=== PATIENT | female | born 1960 | race African-American/Black ===

== ENCOUNTER 2018-10-24 20:42 | Observation (INO) ==
[2018-10-24 21:26] LABS: Basophils % 0.5 % (0.0-0.8); Eosinophils # 0.2 10*3/uL (0.0-0.87); Eosinophils % 2.6 % (0.00-10.9); Hematocrit 30.9 VOL% (35.7-47.0); Hemoglobin 9.9 GM/DL (12.0-16.0); Immature Granulocytes % 0.3 %; Immature Granulocytes Absolute 0.02 #; Lymphocytes # 2.7 10*3/uL (1.4-4.0); Lymphocytes % 41.9 % (21.3-54.2); Mean Corpuscular Hemoglobin 30 PG (27-34); Mean Corpuscular Volume 92.2 FL (87-102); Mean Platelet Volume 9.7 FL (9.6-12.0); Monocytes # 0.6 10*3/uL (0.11-0.8); Monocytes % 8.9 % (1.7-12.7); Neutrophils # 2.9 10*3/uL (1.4-7.4); Neutrophils % 45.8 % (38.7-73.9); Platelet Count 249 T/CUMM (130-400); Red Blood Count 3.35 MC/CUMM (3.8-5.5); White Blood Count 6.4 T/CUMM (4-12)
[2018-10-24] MEDS ORDERED: NITROGLYCERIN SL 0.4 MG TABLET SL ONE (21:35)
[2018-10-24 21:36] LABS: INR 0.9; PT Patient Result 10.1 SECS; Partial Thromboplastin Time 26.5 SECS (0-40)
[2018-10-24] MEDS ORDERED: ASPIRIN 325 MG TABLET PO STA (21:47)
[2018-10-24] MEDS ORDERED: ONDANSETRON 4 MG/2 ML VIAL IV STA (21:47)
[2018-10-24] MEDS ORDERED: FUROSEMIDE 100 MG/10 ML VIAL IV STA (21:47)
[2018-10-24] MEDS ORDERED: MORPHINE 4 MG/1 ML VIAL IV STA (21:47)
[2018-10-24 21:49] LABS: Alanine Aminotransferase 25 U/L (13-56); Albumin 3.3 G/DL (3.4-5.0); Alkaline Phosphatase 121 U/L (45-117); Aspartate Amino Transferase 15 U/L (0-37); Bilirubin,Total < 0.39 MG/DL (0.2-1.0); Blood Urea Nitrogen 24 MG/DL (7-18); Calcium 9.3 MG/DL (8.5-10.1); Glucose 95 MG/DL (74-106); Osmolality,Calculated 280.5 MOS/KG (273-304); Potassium 3.9 MMOL/L (3.5-5.1); Sodium 139 MMOL/L (136-145); Total Protein 7.7 G/DL (6.4-8.3)
[2018-10-24 23:52] LABS: Apearance,Urine Slightly Hazy (Clear); Bacteria,Urine Occasional /HPF (Few); Bilirubin,Urine Negative (Negative); Blood, Urine Negative (Negative); Glucose,Urine (UA) Negative (Negative); Hyaline Casts,Urine 3 /LPF (0-3); Ketones,Urine Negative (Negative); Mucus,Urine Occasional /LPF (Occasional); Nitrite,Urine Positive (Negative); Protein,Urine Negative; RBC,Urine 3 /HPF (0-4); Squamous Epithelial Cell,Urine Occasional /HPF (0-10); Urine Color Yellow (Yellow); Urine Specific Gravity 1.014 (1.001-1.035); Urine Urobilinogen < 2.0 EU/DL (0.2-1.0); WBC,Urine 42 /HPF (0-6)
[2018-10-25] MEDS ORDERED: cefTRIAXone 1,000 MG in SODIUM CHLORIDE 0.9% 100 ML IV STA (01:25)
[2018-10-25] MEDS ORDERED: guaiFENesin/DM ER 600-30 MG TABLET PO PRN (03:16)
[2018-10-25] MEDS ORDERED: ACETAMINOPHEN 325 MG TABLET PO PRN (03:16)
[2018-10-25] MEDS ORDERED: ONDANSETRON 4 MG/2 ML VIAL IV PRN (03:16)
[2018-10-25] MEDS ORDERED: MORPHINE 4 MG/1 ML VIAL IV PRN (03:16)
[2018-10-25] MEDS ORDERED: traZODone 50 MG TABLET PO PRN (03:16)
[2018-10-25] MEDS ORDERED: NICOTINE 21 MG/24 HR PATCH TRANSDERM PRN (03:16)
[2018-10-25] MEDS ORDERED: BISACODYL 5 MG TABLET PO PRN (03:16)
[2018-10-25] MEDS ORDERED: diphenhydrAMINE CAP 25 MG CAPSULE PO PRN (03:16)
[2018-10-25 04:52] LABS: Basophils % 0.4 % (0.0-0.8); Eosinophils # 0.2 10*3/uL (0.0-0.87); Eosinophils % 3.1 % (0.00-10.9); Hematocrit 31.6 VOL% (35.7-47.0); Hemoglobin 10.1 GM/DL (12.0-16.0); Immature Granulocytes % 0.3 %; Immature Granulocytes Absolute 0.02 #; Lymphocytes # 2.6 10*3/uL (1.4-4.0); Lymphocytes % 38.4 % (21.3-54.2); Mean Corpuscular Hemoglobin 30 PG (27-34); Mean Corpuscular Volume 92.7 FL (87-102); Mean Platelet Volume 10.2 FL (9.6-12.0); Monocytes # 0.6 10*3/uL (0.11-0.8); Monocytes % 8.9 % (1.7-12.7); Neutrophils # 3.3 10*3/uL (1.4-7.4); Neutrophils % 48.9 % (38.7-73.9); Platelet Count 251 T/CUMM (130-400); Red Blood Count 3.41 MC/CUMM (3.8-5.5); White Blood Count 6.8 T/CUMM (4-12)
[2018-10-25 05:15] LABS: Albumin 3.2 G/DL (3.4-5.0); Bilirubin,Total 0.6 MG/DL (0.2-1.0); Osmolality,Calculated 281.4 MOS/KG (273-304); Potassium 3.8 MMOL/L (3.5-5.1); Total Protein 7.7 G/DL (6.4-8.3)
[2018-10-25] MEDS: FUROSEMIDE 40 MG/4 ML VIAL IV SCH ×2 (08:44→17:13)
[2018-10-25] MEDS: ENOXAPARIN 40 MG/0.4 ML SYRINGE SUBCUT SCH (08:44)
[2018-10-25] MEDS: PANTOPRAZOLE 40 MG TABLET PO SCH (08:44)
[2018-10-25] MEDS ORDERED: DEXTROSE 50% 25 GM/50 ML SYRINGE IV PRN (10:46)
[2018-10-25] MEDS ORDERED: GLUCAGON 1 MG VIAL IM PRN (10:46)
[2018-10-25] MEDS ORDERED: CYCLOBENZAPRINE 10 MG TABLET PO PRN (10:51)
[2018-10-25] MEDS ORDERED: FLUTICASONE/SALMETEROL 250-50 DISKUS 14 DOSE INH PRN (10:51)
[2018-10-25] MEDS ORDERED: NON-FORMULARY MEDICATION (Albuterol Inhaler 2 PUFF) INH PRN (10:51)
[2018-10-25] MEDS ORDERED: NITROGLYCERIN SL 0.4 MG TABLET SL PRN (10:51)
[2018-10-25] MEDS ORDERED: ALBUTEROL 2.5 MG/3 ML NEB RESP TX PRN (10:51)
[2018-10-25] MEDS: INSULIN LISPRO 100 UNIT/ML SUBCUT SCH ×3 (12:27→23:03)
[2018-10-25] MEDS ORDERED: metOLazone 5 MG TABLET PO SCH (13:00)
[2018-10-25] MEDS: GABAPENTIN 300 MG CAPSULE PO SCH ×2 (14:39→23:01)
[2018-10-25 15:19] LABS: Free T4 (Free Thyroxine) 1.08 NG/DL (0.76-1.46)
[2018-10-25] MEDS: metFORMIN 500 MG TABLET PO SCH (17:13)
[2018-10-25] MEDS ORDERED: INSULIN GLARGINE 100 UNIT/ML SUBCUT SCH (21:00)
[2018-10-25] MEDS: ATORVASTATIN 80 MG TABLET PO SCH (23:01)
[2018-10-25] MEDS: DOCUSATE SODIUM 100 MG CAPSULE PO SCH (23:01)
[2018-10-25] MEDS: MAGNESIUM OXIDE 400 MG TABLET PO SCH (23:01)
[2018-10-25] MEDS: INSULIN GLARGINE 100 UNIT/ML SUBCUT SCH (23:02)
[2018-10-25] MEDS: CARVEDILOL 25 MG TABLET PO SCH (23:07)
[2018-10-26] MEDS: cefTRIAXone 1,000 MG in SYRINGE 1 EACH IV SCH (04:21)
[2018-10-26 04:47] LABS: Basophils % 0.3 % (0.0-0.8); Eosinophils # 0.2 10*3/uL (0.0-0.87); Eosinophils % 2.5 % (0.00-10.9); Hematocrit 30.7 VOL% (35.7-47.0); Hemoglobin 9.7 GM/DL (12.0-16.0); Immature Granulocytes % 0.3 %; Immature Granulocytes Absolute 0.02 #; Lymphocytes # 2.3 10*3/uL (1.4-4.0); Lymphocytes % 33.2 % (21.3-54.2); Mean Corpuscular HGB Conc 31.6 GM/DL (32-36); Mean Corpuscular Hemoglobin 29 PG (27-34); Mean Corpuscular Volume 92.7 FL (87-102); Mean Platelet Volume 10.5 FL (9.6-12.0); Monocytes # 0.6 10*3/uL (0.11-0.8); Monocytes % 8.6 % (1.7-12.7); Neutrophils # 3.8 10*3/uL (1.4-7.4); Neutrophils % 55.1 % (38.7-73.9); Platelet Count 247 T/CUMM (130-400); Red Blood Count 3.31 MC/CUMM (3.8-5.5); Red Cell Distribution Width 13.8 % (9.3-17.3); White Blood Count 6.8 T/CUMM (4-12)
[2018-10-26 05:07] LABS: Calcium 8.6 MG/DL (8.5-10.1); Osmolality,Calculated 280.8 MOS/KG (273-304); Potassium 3.6 MMOL/L (3.5-5.1)
[2018-10-26] MEDS ORDERED: LEVOTHYROXINE 150 MCG TABLET PO SCH (06:30)
[2018-10-26] MEDS ORDERED: CYANOCOBALAMIN 100 MCG TABLET PO SCH (09:00)
[2018-10-26] MEDS ORDERED: FUROSEMIDE 40 MG TABLET PO SCH (09:00)
[2018-10-26] MEDS ORDERED: NON-FORMULARY MEDICATION (Omeprazole [Omeprazole] 20 MG) PO SCH (09:00)
[2018-10-26] MEDS: metFORMIN 500 MG TABLET PO SCH ×2 (09:12→16:10)
[2018-10-26] MEDS: FUROSEMIDE 40 MG/4 ML VIAL IV SCH ×2 (09:12→16:06)
[2018-10-26] MEDS: MAGNESIUM OXIDE 400 MG TABLET PO SCH ×2 (09:12→22:10)
[2018-10-26] MEDS: POTASSIUM CHLORIDE 20 MEQ TABLET PO SCH (09:13)
[2018-10-26] MEDS: GABAPENTIN 300 MG CAPSULE PO SCH ×3 (09:13→22:10)
[2018-10-26] MEDS: amLODIPine 2.5 MG TABLET PO SCH (09:14)
[2018-10-26] MEDS: ENOXAPARIN 40 MG/0.4 ML SYRINGE SUBCUT SCH (09:15)
[2018-10-26] MEDS: ISOSORBIDE MONONITRATE 30 MG TABLET PO SCH (09:15)
[2018-10-26] MEDS: CARVEDILOL 25 MG TABLET PO SCH ×2 (09:15→22:10)
[2018-10-26] MEDS: INSULIN LISPRO 100 UNIT/ML SUBCUT SCH ×4 (09:19→22:12)
[2018-10-26] MEDS: ASPIRIN EC 81 MG TABLET PO SCH (09:19)
[2018-10-26] MEDS: CHOLECALCIFEROL 1,000 UNIT TABLET PO SCH (09:20)
[2018-10-26] MEDS: VALSARTAN/HCTZ 160-12.5 MG TABLET PO SCH (09:20)
[2018-10-26] MEDS: PANTOPRAZOLE 40 MG TABLET PO SCH (09:20)
[2018-10-26] MEDS: diphenhydrAMINE CAP 25 MG CAPSULE PO SCH (09:20)
[2018-10-26] MEDS: DOCUSATE SODIUM 100 MG CAPSULE PO SCH (22:08)
[2018-10-26] MEDS: ATORVASTATIN 80 MG TABLET PO SCH (22:10)
[2018-10-26] MEDS: INSULIN GLARGINE 100 UNIT/ML SUBCUT SCH (22:12)
[2018-10-27] MEDS: cefTRIAXone 1,000 MG in SYRINGE 1 EACH IV SCH (03:25)
[2018-10-27] MEDS ORDERED: LEVOTHYROXINE 175 MCG TABLET PO SCH (06:30)
[2018-10-27 08:33] VITALS: BP 128/75
[2018-10-27] MEDS: CHOLECALCIFEROL 1,000 UNIT TABLET PO SCH (09:20)
[2018-10-27] MEDS: PANTOPRAZOLE 40 MG TABLET PO SCH (09:20)
[2018-10-27] MEDS: MAGNESIUM OXIDE 400 MG TABLET PO SCH (09:20)
[2018-10-27] MEDS: GABAPENTIN 300 MG CAPSULE PO SCH (09:20)
[2018-10-27] MEDS: amLODIPine 2.5 MG TABLET PO SCH (09:20)
[2018-10-27] MEDS: CARVEDILOL 25 MG TABLET PO SCH (09:21)
[2018-10-27] MEDS: ISOSORBIDE MONONITRATE 30 MG TABLET PO SCH (09:21)
[2018-10-27] MEDS: POTASSIUM CHLORIDE 20 MEQ TABLET PO SCH (09:21)
[2018-10-27] MEDS: VALSARTAN/HCTZ 160-12.5 MG TABLET PO SCH (09:21)
[2018-10-27] MEDS: ASPIRIN EC 81 MG TABLET PO SCH (09:21)
[2018-10-27] MEDS: diphenhydrAMINE CAP 25 MG CAPSULE PO SCH (09:21)
[2018-10-27] MEDS: ENOXAPARIN 40 MG/0.4 ML SYRINGE SUBCUT SCH (09:22)
[2018-10-27] MEDS: FUROSEMIDE 40 MG/4 ML VIAL IV SCH (09:22)
[2018-10-27] MEDS: metFORMIN 500 MG TABLET PO SCH (09:22)
[2018-10-27] MEDS: INSULIN LISPRO 100 UNIT/ML SUBCUT SCH ×2 (09:23→13:43)
== END 2018-10-27 13:36 | disposition home or self-care (01) ==
LOC: N.ED 20:42 → N.EDINP 20:42 → SUATTDRO 10-25 03:16 → N.TELES 10-25 04:12
PROVIDERS: ADMIT Internal Medicine; ATTEND Internal Medicine

== ENCOUNTER 2019-01-27 12:28 | Inpatient (IN) ==
[~2019-01-27 12:28] MED LIST: ETOMIDATE 20 MG/10 ML VIAL IV ONE; LIDOCAINE 2% 5 ML VIAL ONE; PROPOFOL 200 MG/20 ML VIAL IV ONE
[2019-01-27] MEDS ORDERED: ASPIRIN 325 MG TABLET PO STA (12:54)
[2019-01-27 13:28] LABS: Basophils # 0.1 10*3/uL (0.0-0.2); Basophils % 0.4 % (0.0-0.8); Eosinophils # 0.1 10*3/uL (0.0-0.87); Eosinophils % 0.7 % (0.00-10.9); Hematocrit 40.2 VOL% (35.7-47.0); Hemoglobin 12.8 GM/DL (12.0-16.0); Immature Granulocytes % 0.8 %; Immature Granulocytes Absolute 0.11 #; Lymphocytes % 7.3 % (21.3-54.2); Mean Corpuscular HGB Conc 31.8 GM/DL (32-36); Mean Corpuscular Volume 89.3 FL (87-102); Mean Platelet Volume 10.2 FL (9.6-12.0); Monocytes % 6.7 % (1.7-12.7); Neutrophils % 84.1 % (38.7-73.9); Platelet Count 313 T/CUMM (130-400); Red Cell Distribution Width 14.7 % (9.3-17.3); White Blood Count 13.6 T/CUMM (4-12)
[2019-01-27 13:38] LABS: Alanine Aminotransferase 22 U/L (13-56); Albumin 4.3 G/DL (3.4-5.0); Alkaline Phosphatase 119 U/L (45-117); Aspartate Amino Transferase 24 U/L (0-37); Blood Urea Nitrogen 18 MG/DL (7-18); Calcium 9.7 MG/DL (8.5-10.1); Glucose 152 MG/DL (74-106); Osmolality,Calculated 277.8 MOS/KG (273-304); Total Protein 8.7 G/DL (6.4-8.3)
[2019-01-27 13:49] LABS: Apearance,Urine Slightly Hazy (Clear); Bacteria,Urine Moderate /HPF (Few); Bilirubin,Urine Negative (Negative); Blood, Urine Negative (Negative); Glucose,Urine (UA) Negative (Negative); Ketones,Urine Negative (Negative); Mucus,Urine Occasional /LPF (Occasional); Nitrite,Urine Negative (Negative); Protein,Urine 30 MG/DL; RBC,Urine 2 /HPF (0-4); Squamous Epithelial Cell,Urine Occasional /HPF (0-10); Urine Color Yellow (Yellow); Urine Specific Gravity 1.013 (1.001-1.035); Urine Urobilinogen < 2.0 EU/DL (0.2-1.0); WBC,Urine 6 /HPF (0-6)
[2019-01-27] MEDS ORDERED: MORPHINE 4 MG/1 ML VIAL IV PRN (14:39)
[2019-01-27] MEDS ORDERED: DOCUSATE SODIUM 100 MG CAPSULE PO PRN (14:49)
[2019-01-27] MEDS ORDERED: PROMETHAZINE 25 MG TABLET PO PRN (14:49)
[2019-01-27] MEDS ORDERED: ONDANSETRON 4 MG/2 ML VIAL IV PRN (14:49)
[2019-01-27] MEDS ORDERED: LORazepam 1 MG TABLET PO ONE (14:49)
[2019-01-27] MEDS ORDERED: NICOTINE 21 MG/24 HR PATCH TRANSDERM PRN (14:49)
[2019-01-27] MEDS ORDERED: NITROGLYCERIN SL 0.4 MG TABLET SL PRN (14:53)
[2019-01-27] MEDS ORDERED: GLUCAGON 1 MG VIAL IM PRN (14:56)
[2019-01-27] MEDS ORDERED: DEXTROSE 50% 25 GM/50 ML VIAL IV PRN (14:56)
[2019-01-27] MEDS ORDERED: SODIUM CHLORIDE 0.9% 1,000 ML IV SCH (15:00)
[2019-01-27 15:39] LABS: Risk Ratio 2.92; Thyroid Stimulating Hormone 7.61 uIU/ml (0.358-3.74); VLDL CHOLESTEROL 25.4 MG/DL
[2019-01-27] MEDS: CLOPIDOGREL 75 MG TABLET PO SCH (16:05)
[2019-01-27] MEDS: PANTOPRAZOLE 40 MG TABLET PO SCH ×2 (16:05→20:55)
[2019-01-27] MEDS: INSULIN LISPRO 100 UNIT/ML SUBCUT SCH ×2 (17:46→20:55)
[2019-01-27] MEDS ORDERED: LEVOFLOXACIN INJ 750 MG in PREMIX 1 EACH IV SCH (18:00)
[2019-01-27] MEDS: cefTRIAXone 2,000 MG in SYRINGE 1 EACH IV SCH (18:30)
[2019-01-27] MEDS: VANCOMYCIN INJ 2,000 MG in SODIUM CHLORIDE 0.9% 500 ML IV SCH (20:39)
[2019-01-27] MEDS ORDERED: ACETAMINOPHEN 325 MG TABLET PO PRN (20:47)
[2019-01-27] MEDS: CARVEDILOL 12.5 MG TABLET PO SCH (20:55)
[2019-01-28] MEDS: SODIUM CHLORIDE 0.9% IV SCH ×3 (00:03→16:11)
[2019-01-28] MEDS: ACYCLOVIR IV SCH ×3 (00:03→16:11)
[2019-01-28] MEDS: cefTRIAXone 2,000 MG in SYRINGE 1 EACH IV SCH ×2 (05:55→17:40)
[2019-01-28 06:16] LABS: Basophils % 0.3 % (0.0-0.8); Eosinophils % 0.1 % (0.00-10.9); Hematocrit 33.9 VOL% (35.7-47.0); Immature Granulocytes % 0.5 %; Immature Granulocytes Absolute 0.08 #; Lymphocytes # 1.5 10*3/uL (1.4-4.0); Lymphocytes % 10.1 % (21.3-54.2); Mean Corpuscular HGB Conc 32.4 GM/DL (32-36); Mean Corpuscular Volume 88.5 FL (87-102); Mean Platelet Volume 9.6 FL (9.6-12.0); Monocytes % 7.6 % (1.7-12.7); Neutrophils % 81.4 % (38.7-73.9); Platelet Count 227 T/CUMM (130-400); Red Blood Count 3.83 MC/CUMM (3.8-5.5); Red Cell Distribution Width 14.8 % (9.3-17.3); White Blood Count 14.8 T/CUMM (4-12)
[2019-01-28] MEDS ORDERED: LEVOTHYROXINE 175 MCG TABLET PO SCH (06:30)
[2019-01-28 06:54] LABS: Bilirubin,Total 0.4 MG/DL (0.2-1.0); Calcium 8.5 MG/DL (8.5-10.1); Osmolality,Calculated 276.8 MOS/KG (273-304); Total Protein 7.3 G/DL (6.4-8.3)
[2019-01-28] MEDS: CHOLECALCIFEROL 1,000 UNIT TABLET PO SCH (08:18)
[2019-01-28] MEDS: ROSUVASTATIN 20 MG TABLET PO SCH (08:18)
[2019-01-28] MEDS: FUROSEMIDE 80 MG TABLET PO SCH (08:19)
[2019-01-28] MEDS: MAGNESIUM CHLORIDE 64 MG TABLET PO SCH (08:19)
[2019-01-28] MEDS: CLOPIDOGREL 75 MG TABLET PO SCH (08:19)
[2019-01-28] MEDS: ASPIRIN EC 81 MG TABLET PO SCH (08:19)
[2019-01-28] MEDS: POTASSIUM CHLORIDE 20 MEQ TABLET PO SCH (08:20)
[2019-01-28] MEDS: PANTOPRAZOLE 40 MG TABLET PO SCH ×2 (08:20→23:02)
[2019-01-28] MEDS: CARVEDILOL 12.5 MG TABLET PO SCH ×2 (08:21→23:02)
[2019-01-28] MEDS: VALSARTAN/HCTZ 160-12.5 MG TABLET PO SCH (08:22)
[2019-01-28] MEDS: ISOSORBIDE MONONITRATE 30 MG TABLET PO SCH (08:22)
[2019-01-28 09:39] LABS: INR 1.1; PT Patient Result 11.8 SECS
[2019-01-28] MEDS: VANCOMYCIN INJ 2,000 MG in SODIUM CHLORIDE 0.9% 500 ML IV SCH ×2 (09:46→23:03)
[2019-01-28] MEDS: INSULIN LISPRO 100 UNIT/ML SUBCUT SCH ×4 (09:46→23:04)
[2019-01-28] MEDS ORDERED: DEXTROSE 50% 25 GM/50 ML VIAL IV PRN (12:39)
[2019-01-28] MEDS ORDERED: GLUCAGON 1 MG VIAL IM PRN (12:39)
[2019-01-29 02:19] LABS: Basophils % 0.3 % (0.0-0.8); Eosinophils # 0.1 10*3/uL (0.0-0.87); Eosinophils % 0.7 % (0.00-10.9); Hematocrit 30.3 VOL% (35.7-47.0); Hemoglobin 9.7 GM/DL (12.0-16.0); Immature Granulocytes % 0.6 %; Immature Granulocytes Absolute 0.06 #; Lymphocytes # 2.2 10*3/uL (1.4-4.0); Lymphocytes % 21.5 % (21.3-54.2); Mean Corpuscular Volume 89.4 FL (87-102); Mean Platelet Volume 9.9 FL (9.6-12.0); Monocytes % 10.4 % (1.7-12.7); Neutrophils % 66.5 % (38.7-73.9); Platelet Count 188 T/CUMM (130-400); Red Blood Count 3.39 MC/CUMM (3.8-5.5); Red Cell Distribution Width 14.9 % (9.3-17.3); White Blood Count 10.2 T/CUMM (4-12)
[2019-01-29] MEDS: ACYCLOVIR IV SCH ×2 (02:49→10:45)
[2019-01-29] MEDS: SODIUM CHLORIDE 0.9% IV SCH ×2 (02:49→10:45)
[2019-01-29 02:54] LABS: Alanine Aminotransferase 36 U/L (13-56); Alkaline Phosphatase 103 U/L (45-117); Aspartate Amino Transferase 45 U/L (0-37); Bilirubin,Total < 0.39 MG/DL (0.2-1.0); Blood Urea Nitrogen 19 MG/DL (7-18); Glucose 155 MG/DL (74-106); Osmolality,Calculated 277.8 MOS/KG (273-304); Total Protein 7.2 G/DL (6.4-8.3)
[2019-01-29] MEDS: LEVOTHYROXINE 200 MCG TABLET PO SCH (06:50)
[2019-01-29] MEDS: cefTRIAXone 2,000 MG in SYRINGE 1 EACH IV SCH (06:50)
[2019-01-29] MEDS: INSULIN LISPRO 100 UNIT/ML SUBCUT SCH ×4 (09:50→21:11)
[2019-01-29] MEDS: VANCOMYCIN INJ 2,000 MG in SODIUM CHLORIDE 0.9% 500 ML IV SCH (10:44)
[2019-01-29] MEDS: CHOLECALCIFEROL 1,000 UNIT TABLET PO SCH (10:49)
[2019-01-29] MEDS: VALSARTAN/HCTZ 160-12.5 MG TABLET PO SCH (10:49)
[2019-01-29] MEDS: POTASSIUM CHLORIDE 20 MEQ TABLET PO SCH (10:50)
[2019-01-29] MEDS: CLOPIDOGREL 75 MG TABLET PO SCH (10:50)
[2019-01-29] MEDS: ASPIRIN EC 81 MG TABLET PO SCH (10:50)
[2019-01-29] MEDS: ROSUVASTATIN 20 MG TABLET PO SCH (10:50)
[2019-01-29] MEDS: FUROSEMIDE 80 MG TABLET PO SCH (10:51)
[2019-01-29] MEDS: CARVEDILOL 12.5 MG TABLET PO SCH ×2 (10:51→21:09)
[2019-01-29] MEDS: ISOSORBIDE MONONITRATE 30 MG TABLET PO SCH (10:51)
[2019-01-29] MEDS: MAGNESIUM CHLORIDE 64 MG TABLET PO SCH (10:51)
[2019-01-29] MEDS: PANTOPRAZOLE 40 MG TABLET PO SCH ×2 (10:51→21:09)
[2019-01-30 01:55] LABS: Basophils % 0.3 % (0.0-0.8); Eosinophils # 0.2 10*3/uL (0.0-0.87); Eosinophils % 3.6 % (0.00-10.9); Hematocrit 29.9 VOL% (35.7-47.0); Hemoglobin 9.8 GM/DL (12.0-16.0); Immature Granulocytes % 0.1 %; Immature Granulocytes Absolute 0.01 #; Mean Corpuscular HGB Conc 32.8 GM/DL (32-36); Mean Corpuscular Volume 88.5 FL (87-102); Mean Platelet Volume 10.5 FL (9.6-12.0); Monocytes % 11.8 % (1.7-12.7); Neutrophils % 55.2 % (38.7-73.9); Platelet Count 199 T/CUMM (130-400); Red Blood Count 3.38 MC/CUMM (3.8-5.5); Red Cell Distribution Width 14.9 % (9.3-17.3); White Blood Count 6.7 T/CUMM (4-12)
[2019-01-30 02:18] LABS: Alanine Aminotransferase 48 U/L (13-56); Albumin 2.9 G/DL (3.4-5.0); Alkaline Phosphatase 101 U/L (45-117); Aspartate Amino Transferase 53 U/L (0-37); Bilirubin,Total < 0.39 MG/DL (0.2-1.0); Blood Urea Nitrogen 20 MG/DL (7-18); Calcium 8.1 MG/DL (8.5-10.1); Glucose 184 MG/DL (74-106); Osmolality,Calculated 286.4 MOS/KG (273-304)
[2019-01-30] MEDS: LEVOTHYROXINE 200 MCG TABLET PO SCH (06:06)
[2019-01-30] MEDS ORDERED: cefTRIAXone 2,000 MG in SYRINGE 1 EACH IV SCH (09:00)
[2019-01-30] MEDS: INSULIN LISPRO 100 UNIT/ML SUBCUT SCH ×2 (09:47→13:54)
[2019-01-30] MEDS: CHOLECALCIFEROL 1,000 UNIT TABLET PO SCH (09:48)
[2019-01-30] MEDS: VALSARTAN/HCTZ 160-12.5 MG TABLET PO SCH (09:48)
[2019-01-30] MEDS: FUROSEMIDE 80 MG TABLET PO SCH (09:48)
[2019-01-30] MEDS: MAGNESIUM CHLORIDE 64 MG TABLET PO SCH (09:49)
[2019-01-30] MEDS: ASPIRIN EC 81 MG TABLET PO SCH (09:49)
[2019-01-30] MEDS: CLOPIDOGREL 75 MG TABLET PO SCH (09:49)
[2019-01-30] MEDS: CARVEDILOL 12.5 MG TABLET PO SCH (09:49)
[2019-01-30] MEDS: PANTOPRAZOLE 40 MG TABLET PO SCH (09:49)
[2019-01-30] MEDS: POTASSIUM CHLORIDE 20 MEQ TABLET PO SCH (09:49)
[2019-01-30] MEDS: ISOSORBIDE MONONITRATE 30 MG TABLET PO SCH (09:49)
[2019-01-30] MEDS: ROSUVASTATIN 20 MG TABLET PO SCH (09:50)
[2019-01-30 12:59] VITALS: BP 118/63
== END 2019-01-30 15:54 | disposition home or self-care (01) | DRG 690 ==
LOC: N.ED 12:28 → N.EDINP 14:49 → N.TELEN 16:41
PROVIDERS: ADMIT Internal Medicine; ATTEND Internal Medicine

== ENCOUNTER 2019-07-20 13:58 | Observation (INO) ==
[2019-07-20 14:45] LABS: Basophils % 0.8 % (0.0-0.8); Eosinophils # 0.1 10*3/uL (0.0-0.87); Eosinophils % 2.5 % (0.00-10.9); Hematocrit 33.8 VOL% (35.7-47.0); Hemoglobin 10.9 GM/DL (12.0-16.0); Immature Granulocytes % 0.4 %; Immature Granulocytes Absolute 0.02 #; Lymphocytes # 2.1 10*3/uL (1.4-4.0); Lymphocytes % 39.6 % (21.3-54.2); Mean Corpuscular HGB Conc 32.2 GM/DL (32-36); Mean Corpuscular Volume 89.4 FL (87-102); Mean Platelet Volume 10.3 FL (9.6-12.0); Monocytes % 11.4 % (1.7-12.7); Neutrophils % 45.3 % (38.7-73.9); Platelet Count 249 T/CUMM (130-400); Red Blood Count 3.78 MC/CUMM (3.8-5.5); Red Cell Distribution Width 14.6 % (9.3-17.3); White Blood Count 5.3 T/CUMM (4-12)
[2019-07-20 14:54] LABS: INR 0.9; PT Patient Result 9.9 SECS (9.6-12.2)
[2019-07-20 15:04] LABS: Alanine Aminotransferase 25 U/L (13-56); Albumin 3.3 G/DL (3.4-5.0); Alkaline Phosphatase 108 U/L (45-117); Aspartate Amino Transferase 28 U/L (0-37); Bilirubin,Total < 0.39 MG/DL (0.2-1.0); Blood Urea Nitrogen 13 MG/DL (7-18); Calcium 8.8 MG/DL (8.5-10.1); Estimated Glom Filtration Rate 88 ML/MIN; Glucose 242 MG/DL (74-106); Osmolality,Calculated 286.4 MOS/KG (273-304); Total Protein 7.9 G/DL (6.4-8.3)
[2019-07-20] MEDS ORDERED: FUROSEMIDE 40 MG/4 ML VIAL IV STA (16:12)
[2019-07-20] MEDS ORDERED: FUROSEMIDE 100 MG/10 ML VIAL ONE (16:17)
[2019-07-20 17:25] LABS: Apearance,Urine CLEAR (Clear); Bilirubin,Urine Negative (Negative); Blood, Urine Negative (Negative); Glucose,Urine (UA) 150 mg/dL (Negative); Ketones,Urine Negative (Negative); Mucus,Urine Occasional /LPF (Occasional); Nitrite,Urine Negative (Negative); Protein,Urine Negative; RBC,Urine 1 /HPF (0-4); Squamous Epithelial Cell,Urine Occasional /HPF (0-10); Urine Color Yellow (Yellow); Urine Specific Gravity 1.016 (1.001-1.035); Urine Urobilinogen < 2.0 EU/DL (0.2-1.0); WBC,Urine 1 /HPF (0-6)
[2019-07-20] MEDS ORDERED: MAGNESIUM SULF RIDER 4 GM in PREMIX 1 EACH IV PRN (18:23)
[2019-07-20] MEDS ORDERED: guaiFENesin/DM ER 600-30 MG TABLET PO PRN (18:23)
[2019-07-20] MEDS ORDERED: ONDANSETRON 4 MG/2 ML VIAL IV PRN (18:23)
[2019-07-20] MEDS ORDERED: POTASSIUM CHLORIDE 20 MEQ TABLET PO PRN (18:23)
[2019-07-20] MEDS ORDERED: MAGNESIUM SULF RIDER 2 GM in PREMIX 1 EACH IV PRN (18:23)
[2019-07-20] MEDS ORDERED: DEXTROSE 10% 250 ML BAG IV PRN (18:31)
[2019-07-20] MEDS ORDERED: GLUCAGON 1 MG VIAL IM PRN (18:31)
[2019-07-20] MEDS ORDERED: NITROGLYCERIN SL 0.4 MG TABLET SL PRN (18:33)
[2019-07-20 22:15] LABS: Troponin I 0.502 NG/ML (0.00-0.045)
[2019-07-20] MEDS: INSULIN LISPRO 100 UNIT/ML SUBCUT SCH (22:18)
[2019-07-20] MEDS: ENOXAPARIN 40 MG/0.4 ML SYRINGE SUBCUT SCH (22:19)
[2019-07-20] MEDS: carvediloL 12.5 MG TABLET PO SCH (22:19)
[2019-07-21 02:47] LABS: Basophils % 0.7 % (0.0-0.8); Eosinophils # 0.1 10*3/uL (0.0-0.87); Eosinophils % 2.1 % (0.00-10.9); Hematocrit 31.5 VOL% (35.7-47.0); Hemoglobin 10.3 GM/DL (12.0-16.0); Immature Granulocytes % 0.3 %; Immature Granulocytes Absolute 0.02 #; Lymphocytes % 34.8 % (21.3-54.2); Mean Corpuscular HGB Conc 32.7 GM/DL (32-36); Mean Corpuscular Volume 88.5 FL (87-102); Mean Platelet Volume 11.1 FL (9.6-12.0); Monocytes % 11.4 % (1.7-12.7); Neutrophils % 50.7 % (38.7-73.9); Platelet Count 239 T/CUMM (130-400); Red Blood Count 3.56 MC/CUMM (3.8-5.5); Red Cell Distribution Width 14.6 % (9.3-17.3); White Blood Count 5.8 T/CUMM (4-12)
[2019-07-21 03:27] LABS: Troponin I 0.428 NG/ML (0.00-0.045)
[2019-07-21 03:29] LABS: Alanine Aminotransferase 26 U/L (13-56); Albumin 3.1 G/DL (3.4-5.0); Alkaline Phosphatase 96 U/L (45-117); Aspartate Amino Transferase 28 U/L (0-37); Bilirubin,Total < 0.39 MG/DL (0.2-1.0); Blood Urea Nitrogen 13 MG/DL (7-18); Calcium 8.4 MG/DL (8.5-10.1); Estimated Glom Filtration Rate 79 ML/MIN; Glucose 183 MG/DL (74-106); HDL Cholesterol 32 MG/DL (40-60); Osmolality,Calculated 283.4 MOS/KG (273-304); Risk Ratio 4.44; Total Protein 6.8 G/DL (6.4-8.3); Triglycerides 299 MG/DL (2-150); VLDL CHOLESTEROL 59.8 MG/DL
[2019-07-21] MEDS: LEVOTHYROXINE 200 MCG TABLET PO SCH (06:04)
[2019-07-21] MEDS: CLOPIDOGREL 75 MG TABLET PO SCH (09:45)
[2019-07-21] MEDS: ISOSORBIDE MONONITRATE 30 MG TABLET PO SCH (09:45)
[2019-07-21] MEDS: DULoxetine 30 MG CAPSULE PO SCH (09:45)
[2019-07-21] MEDS: carvediloL 12.5 MG TABLET PO SCH ×2 (09:45→18:21)
[2019-07-21] MEDS: FUROSEMIDE 40 MG/4 ML VIAL IV SCH ×2 (09:45→15:32)
[2019-07-21] MEDS: ROSUVASTATIN 20 MG TABLET PO SCH (09:45)
[2019-07-21] MEDS: PANTOPRAZOLE 40 MG TABLET PO SCH (09:45)
[2019-07-21] MEDS: ASPIRIN EC 81 MG TABLET PO SCH (09:45)
[2019-07-21] MEDS: NICOTINE 21 MG/24 HR PATCH TRANSDERM PRN (09:46)
[2019-07-21] MEDS: INSULIN LISPRO 100 UNIT/ML SUBCUT SCH ×4 (09:53→22:32)
[2019-07-21] MEDS: ENOXAPARIN 40 MG/0.4 ML SYRINGE SUBCUT SCH (22:32)
[2019-07-22 05:35] LABS: Basophils % 0.6 % (0.0-0.8); Eosinophils # 0.1 10*3/uL (0.0-0.87); Eosinophils % 2.3 % (0.00-10.9); Hematocrit 30.4 VOL% (35.7-47.0); Immature Granulocytes % 0.4 %; Immature Granulocytes Absolute 0.02 #; Lymphocytes # 1.9 10*3/uL (1.4-4.0); Lymphocytes % 36.6 % (21.3-54.2); Mean Corpuscular HGB Conc 32.9 GM/DL (32-36); Mean Corpuscular Volume 87.6 FL (87-102); Mean Platelet Volume 10.6 FL (9.6-12.0); Neutrophils % 46.1 % (38.7-73.9); Platelet Count 227 T/CUMM (130-400); Red Blood Count 3.47 MC/CUMM (3.8-5.5); Red Cell Distribution Width 14.4 % (9.3-17.3); White Blood Count 5.1 T/CUMM (4-12)
[2019-07-22 05:57] LABS: Bilirubin,Total 0.4 MG/DL (0.2-1.0); Calcium 8.6 MG/DL (8.5-10.1); Osmolality,Calculated 282.8 MOS/KG (273-304); Total Protein 7.1 G/DL (6.4-8.3)
[2019-07-22] MEDS: LEVOTHYROXINE 200 MCG TABLET PO SCH (06:41)
[2019-07-22] MEDS: DULoxetine 30 MG CAPSULE PO SCH (09:35)
[2019-07-22] MEDS: ASPIRIN EC 81 MG TABLET PO SCH (09:35)
[2019-07-22] MEDS: PANTOPRAZOLE 40 MG TABLET PO SCH (09:35)
[2019-07-22] MEDS: ROSUVASTATIN 20 MG TABLET PO SCH (09:36)
[2019-07-22] MEDS: ISOSORBIDE MONONITRATE 30 MG TABLET PO SCH (09:36)
[2019-07-22] MEDS: carvediloL 12.5 MG TABLET PO SCH (09:36)
[2019-07-22] MEDS: CLOPIDOGREL 75 MG TABLET PO SCH (09:36)
[2019-07-22] MEDS: NICOTINE 21 MG/24 HR PATCH TRANSDERM PRN (09:37)
[2019-07-22] MEDS: FUROSEMIDE 40 MG/4 ML VIAL IV SCH (09:37)
[2019-07-22] MEDS: INSULIN LISPRO 100 UNIT/ML SUBCUT SCH ×2 (10:45→12:56)
[2019-07-22 16:39] VITALS: BP 130/57
[2019-07-22] MEDS ORDERED: carvediloL 25 MG TABLET PO SCH (17:00)
== END 2019-07-22 16:50 | disposition home or self-care (01) ==
LOC: N.EDINP 13:58 → N.ED 13:58 → SUATTDRO 18:23 → N.2W 19:33
PROVIDERS: ADMIT Emergency Medicine; ATTEND Hospitalist

== ENCOUNTER 2019-08-06 00:30 | Inpatient (IN) ==
[2019-08-06] MEDS ORDERED: ONDANSETRON 4 MG/2 ML VIAL IV STA (00:57)
[2019-08-06] MEDS ORDERED: MORPHINE 4 MG/1 ML VIAL IV STA (00:57)
[2019-08-06] MEDS ORDERED: ASPIRIN 325 MG TABLET PO STA (00:57)
[2019-08-06] MEDS ORDERED: ALUM/MAG/SIMETH/LIDO VISC 1:1 30 ML BOTTLE PO STA (00:57)
[2019-08-06] MEDS ORDERED: NITROGLYCERIN 2% OINT 1 INCH/GM PACK TOP STA (00:57)
[2019-08-06] MEDS ORDERED: FUROSEMIDE 40 MG/4 ML VIAL IV STA (00:57)
[2019-08-06] MEDS ORDERED: hydrALAZINE 20 MG/1 ML VIAL IV STA ×2 (00:57→02:01)
[2019-08-06] MEDS ORDERED: NITROGLYCERIN 2% OINT 1 INCH/GM PACK TOP ONE (01:00)
[2019-08-06 01:27] LABS: Basophils % 0.1 % (0.0-0.8); Immature Granulocytes % 0.8 %; Immature Granulocytes Absolute 0.06 #; Lymphocytes % 11.9 % (21.3-54.2); Mean Corpuscular HGB Conc 33.3 GM/DL (32-36); Mean Corpuscular Volume 87.8 FL (87-102); Mean Platelet Volume 10.8 FL (9.6-12.0); Monocytes % 1.5 % (1.7-12.7); Neutrophils % 85.7 % (38.7-73.9); Platelet Count 347 T/CUMM (130-400); Red Cell Distribution Width 14.3 % (9.3-17.3)
[2019-08-06 01:38] LABS: Alanine Aminotransferase 22 U/L (13-56); Albumin 3.9 G/DL (3.4-5.0); Alkaline Phosphatase 121 U/L (45-117); Aspartate Amino Transferase 19 U/L (0-37); Bilirubin,Total < 0.39 MG/DL (0.2-1.0); Blood Urea Nitrogen 24 MG/DL (7-18); Estimated Glom Filtration Rate 56 ML/MIN; Glucose 447 MG/DL (74-106); Osmolality,Calculated 290.2 MOS/KG (273-304); Total Protein 8.8 G/DL (6.4-8.3)
[2019-08-06 01:41] LABS: INR 0.9
[2019-08-06] MEDS ORDERED: INSULIN REGULAR 100 UNIT/ML SUBCUT STA (01:49)
[2019-08-06] MEDS ORDERED: LORazepam 2 MG/1 ML VIAL IV STA (04:46)
[2019-08-06] MEDS ORDERED: MIDAZOLAM 2 MG/2 ML VIAL IV ONE (05:53)
[2019-08-06] MEDS ORDERED: HYDROmorphone 2 MG/1 ML VIAL IV ONE (05:53)
[2019-08-06] MEDS ORDERED: DEXTROSE 50% 25 GM/50 ML VIAL IV PRN (06:14)
[2019-08-06] MEDS ORDERED: GLUCAGON 1 MG VIAL IM PRN (06:14)
[2019-08-06] MEDS ORDERED: DOCUSATE SODIUM 100 MG CAPSULE PO PRN (06:14)
[2019-08-06] MEDS ORDERED: MORPHINE 4 MG/1 ML VIAL IV PRN (06:14)
[2019-08-06] MEDS ORDERED: ACETAMINOPHEN 325 MG TABLET PO PRN (06:14)
[2019-08-06] MEDS ORDERED: traZODone 50 MG TABLET PO PRN (06:14)
[2019-08-06] MEDS ORDERED: ONDANSETRON 4 MG/2 ML VIAL IV PRN (06:14)
[2019-08-06] MEDS ORDERED: ENOXAPARIN 40 MG/0.4 ML SYRINGE SUBCUT SCH (06:30)
[2019-08-06] MEDS: INSULIN REGULAR 100 UNIT/ML SUBCUT SCH ×4 (09:47→21:10)
[2019-08-06] MEDS ORDERED: DIAZEPAM 5 MG TABLET PO ONE (10:59)
[2019-08-06] MEDS ORDERED: diphenhydrAMINE CAP 25 MG CAPSULE PO ONE (10:59)
[2019-08-06] MEDS ORDERED: POTASSIUM CHLORIDE RIDER 10 MEQ in PREMIX 1 EACH IV PRN (10:59)
[2019-08-06] MEDS ORDERED: MAGNESIUM SULF RIDER 2 GM in PREMIX 1 EACH IV PRN (10:59)
[2019-08-06] MEDS ORDERED: SODIUM CHLORIDE 0.9% 1,000 ML IV SCH (11:00)
[2019-08-06] MEDS ORDERED: LIDOCAINE 1% 20 ML VIAL ONE (11:29)
[2019-08-06] MEDS ORDERED: amLODIPine 10 MG TABLET PO ONE (12:43)
[2019-08-06] MEDS ORDERED: NITROGLYCERIN SL 0.4 MG TABLET SL PRN ×2 (14:43→15:44)
[2019-08-06] MEDS ORDERED: NICOTINE 21 MG/24 HR PATCH TRANSDERM PRN (15:44)
[2019-08-06] MEDS ORDERED: LEVALBUTEROL 1.25 MG/3 ML NEB RESP TX PRN (15:44)
[2019-08-06 16:32] LABS: Basophils % 0.1 % (0.0-0.8); Hematocrit 33.4 VOL% (35.7-47.0); Hemoglobin 10.5 GM/DL (12.0-16.0); Immature Granulocytes % 0.5 %; Immature Granulocytes Absolute 0.06 #; Lymphocytes # 1.7 10*3/uL (1.4-4.0); Mean Corpuscular HGB Conc 31.4 GM/DL (32-36); Mean Platelet Volume 10.4 FL (9.6-12.0); Monocytes % 7.9 % (1.7-12.7); Neutrophils % 77.5 % (38.7-73.9); Platelet Count 316 T/CUMM (130-400); Red Blood Count 3.71 MC/CUMM (3.8-5.5); Red Cell Distribution Width 14.6 % (9.3-17.3)
[2019-08-06 16:56] LABS: CKMB % 6.7 %; Calcium 8.8 MG/DL (8.5-10.1)
[2019-08-06 17:01] LABS: Troponin I 12.4 NG/ML (0.00-0.045)
[2019-08-06] MEDS: carvediloL 25 MG TABLET PO SCH (17:25)
[2019-08-06] MEDS: INSULIN ASPART PROTAMINE/ASPART 70/30 100 UNIT/ML SUBCUT SCH (18:23)
[2019-08-06] MEDS: FLUTICASONE/SALMETEROL 250-50 DISKUS 14 DOSE INH SCH (21:09)
[2019-08-06] MEDS: DOCUSATE/SENNA 50-8.6 MG TABLET PO SCH (21:09)
[2019-08-06] MEDS: CYCLOBENZAPRINE 10 MG TABLET PO SCH (21:09)
[2019-08-06] MEDS: MAGNESIUM OXIDE 400 MG TABLET PO SCH (21:10)
[2019-08-06] MEDS: MAGNESIUM CHLORIDE 64 MG TABLET PO SCH (21:10)
[2019-08-07 06:16] LABS: Basophils % 0.2 % (0.0-0.8); Eosinophils % 0.3 % (0.00-10.9); Hematocrit 30.3 VOL% (35.7-47.0); Hemoglobin 9.8 GM/DL (12.0-16.0); Immature Granulocytes % 0.4 %; Immature Granulocytes Absolute 0.04 #; Lymphocytes # 2.9 10*3/uL (1.4-4.0); Lymphocytes % 27.6 % (21.3-54.2); Mean Corpuscular HGB Conc 32.3 GM/DL (32-36); Mean Corpuscular Volume 88.9 FL (87-102); Mean Platelet Volume 10.6 FL (9.6-12.0); Neutrophils % 63.5 % (38.7-73.9); Platelet Count 272 T/CUMM (130-400); Red Blood Count 3.41 MC/CUMM (3.8-5.5); Red Cell Distribution Width 14.6 % (9.3-17.3); White Blood Count 10.6 T/CUMM (4-12)
[2019-08-07] MEDS: LEVOTHYROXINE 200 MCG TABLET PO SCH (06:32)
[2019-08-07 06:42] LABS: Calcium 9.1 MG/DL (8.5-10.1); Osmolality,Calculated 285.8 MOS/KG (273-304)
[2019-08-07 06:59] LABS: CKMB % 5.1 %
[2019-08-07 07:00] LABS: Troponin I 8.22 NG/ML (0.00-0.045)
[2019-08-07] MEDS ORDERED: NEBIVOLOL 5 MG TABLET PO SCH (09:00)
[2019-08-07] MEDS: MAGNESIUM CHLORIDE 64 MG TABLET PO SCH ×2 (09:01→21:30)
[2019-08-07] MEDS: ISOSORBIDE MONONITRATE 30 MG TABLET PO SCH (09:02)
[2019-08-07] MEDS: DOCUSATE SODIUM 100 MG CAPSULE PO SCH (09:02)
[2019-08-07] MEDS: ASPIRIN EC 81 MG TABLET PO SCH (09:02)
[2019-08-07] MEDS: PANTOPRAZOLE 40 MG TABLET PO SCH (09:02)
[2019-08-07] MEDS: MORPHINE ER 15 MG TABLET PO SCH (09:02)
[2019-08-07] MEDS: ROSUVASTATIN 20 MG TABLET PO SCH (09:02)
[2019-08-07] MEDS: FLUTICASONE/SALMETEROL 250-50 DISKUS 14 DOSE INH SCH ×2 (09:02→21:29)
[2019-08-07] MEDS: carvediloL 25 MG TABLET PO SCH ×2 (09:02→17:06)
[2019-08-07] MEDS: INSULIN GLARGINE 100 UNIT/ML SUBCUT SCH (09:03)
[2019-08-07] MEDS: amLODIPine 2.5 MG TABLET PO SCH (09:03)
[2019-08-07] MEDS: INSULIN ASPART PROTAMINE/ASPART 70/30 100 UNIT/ML SUBCUT SCH ×2 (09:03→18:37)
[2019-08-07] MEDS: DULoxetine 30 MG CAPSULE PO SCH (09:03)
[2019-08-07] MEDS: CYCLOBENZAPRINE 10 MG TABLET PO SCH ×2 (09:03→21:28)
[2019-08-07] MEDS: INSULIN REGULAR 100 UNIT/ML SUBCUT SCH ×4 (09:04→21:27)
[2019-08-07] MEDS: Liraglutide [Victoza 3-Pak] 1.8 MG SUBCUT SCH (09:36)
[2019-08-07] MEDS: MAGNESIUM OXIDE 400 MG TABLET PO SCH (09:58)
[2019-08-07] MEDS: CHOLECALCIFEROL 1,000 UNIT TABLET PO SCH (17:07)
[2019-08-07] MEDS: POLYETHYLENE GLYCOL POWDER 17 GM PACK PO SCH (21:27)
[2019-08-07] MEDS: OMEGA 3 ACID ETHYL ESTERS 1 GM CAPSULE PO SCH (21:28)
[2019-08-07] MEDS: DOCUSATE/SENNA 50-8.6 MG TABLET PO SCH (21:33)
[2019-08-08] MEDS: LEVOTHYROXINE 200 MCG TABLET PO SCH (05:58)
[2019-08-08] MEDS ORDERED: CEFUROXIME INJ 1,500 MG in SYRINGE 1 EACH IV ONE (06:00)
[2019-08-08] MEDS ORDERED: DEXTROSE 50% 25 GM/50 ML VIAL IV PRN (08:30)
[2019-08-08] MEDS ORDERED: SODIUM CHLORIDE 0.9% 1,000 ML IV SCH (08:30)
[2019-08-08] MEDS ORDERED: GLUCAGON 1 MG VIAL IM PRN (08:30)
[2019-08-08] MEDS ORDERED: CHLORHEXIDINE 0.12% ORAL RINSE 60 ML BOTTLE SWISH/SPIT SCH (09:00)
[2019-08-08] MEDS ORDERED: CHLORHEXIDINE 4% SOLN 118 ML BOTTLE TOP SCH (09:00)
[2019-08-08] MEDS: POLYETHYLENE GLYCOL POWDER 17 GM PACK PO SCH ×2 (09:07→21:03)
[2019-08-08] MEDS: DOCUSATE SODIUM 100 MG CAPSULE PO SCH (09:07)
[2019-08-08] MEDS: ROSUVASTATIN 20 MG TABLET PO SCH (09:08)
[2019-08-08] MEDS: ISOSORBIDE MONONITRATE 30 MG TABLET PO SCH (09:08)
[2019-08-08] MEDS: DULoxetine 30 MG CAPSULE PO SCH (09:08)
[2019-08-08] MEDS: ASPIRIN EC 81 MG TABLET PO SCH (09:08)
[2019-08-08] MEDS: OMEGA 3 ACID ETHYL ESTERS 1 GM CAPSULE PO SCH ×2 (09:08→20:55)
[2019-08-08] MEDS: CHOLECALCIFEROL 1,000 UNIT TABLET PO SCH (09:09)
[2019-08-08] MEDS: CYCLOBENZAPRINE 10 MG TABLET PO SCH ×2 (09:09→20:55)
[2019-08-08] MEDS: PANTOPRAZOLE 40 MG TABLET PO SCH (09:09)
[2019-08-08] MEDS: amLODIPine 2.5 MG TABLET PO SCH (09:10)
[2019-08-08] MEDS: carvediloL 25 MG TABLET PO SCH (09:10)
[2019-08-08] MEDS: MORPHINE ER 15 MG TABLET PO SCH (09:11)
[2019-08-08] MEDS: FLUTICASONE/SALMETEROL 250-50 DISKUS 14 DOSE INH SCH ×2 (09:11→20:57)
[2019-08-08] MEDS: MAGNESIUM CHLORIDE 64 MG TABLET PO SCH ×2 (09:11→21:04)
[2019-08-08] MEDS: INSULIN ASPART PROTAMINE/ASPART 70/30 100 UNIT/ML SUBCUT SCH ×2 (09:13→20:57)
[2019-08-08] MEDS: INSULIN GLARGINE 100 UNIT/ML SUBCUT SCH (09:14)
[2019-08-08 09:54] LABS: ABG Base Excess 0.4 MMOL/L (-2.5-2.5); ABG HCO3 24.8 MMOL/L (20-26); ABG Oxygen Saturation 97.9 % (95-100); ABG PCO2 44.4 MM HG (35-48); ABG PH 7.373 (7.35-7.45); ABG TCO2 23.7 MMOL/L (23-27); Allen Test Positive
[2019-08-08] MEDS: INSULIN REGULAR 100 UNIT/ML SUBCUT SCH ×4 (10:26→20:57)
[2019-08-08] MEDS: Liraglutide [Victoza 3-Pak] 1.8 MG SUBCUT SCH (10:27)
[2019-08-08] MEDS: CHLORHEXIDINE 4% SOLN 118 ML BOTTLE TOP SCH ×2 (16:35→21:07)
[2019-08-08] MEDS ORDERED: DIAZEPAM 5 MG TABLET PO ONE (17:17)
[2019-08-08] MEDS ORDERED: RANITIDINE 150 MG TABLET PO ONE (17:17)
[2019-08-08] MEDS ORDERED: POTASSIUM CHLORIDE 20 MEQ TABLET PO ONE (20:35)
[2019-08-08] MEDS: DOCUSATE/SENNA 50-8.6 MG TABLET PO SCH (20:55)
[2019-08-08] MEDS: CHLORHEXIDINE 0.12% ORAL RINSE 60 ML BOTTLE SWISH/SPIT SCH (21:01)
[2019-08-08] MEDS: carvediloL 3.125 MG TABLET PO SCH (21:19)
[2019-08-09] MEDS ORDERED: PAPAVERINE 60 MG/2 ML VIAL ONE (04:59)
[2019-08-09] MEDS ORDERED: VANCOMYCIN 500 MG VIAL ONE (05:00)
[2019-08-09] MEDS ORDERED: VANCOMYCIN 1,000 MG VIAL ONE (05:00)
[2019-08-09] MEDS: LEVOTHYROXINE 200 MCG TABLET PO SCH (05:55)
[2019-08-09] MEDS ORDERED: MIDAZOLAM 10 MG/2 ML VIAL ONE (05:57)
[2019-08-09] MEDS ORDERED: SUFentanil 250 MCG/5 ML AMP ONE (05:57)
[2019-08-09 06:00] LABS: Basophils % 0.6 % (0.0-0.8); Eosinophils # 0.1 10*3/uL (0.0-0.87); Immature Granulocytes % 0.4 %; Immature Granulocytes Absolute 0.03 #; Lymphocytes # 2.3 10*3/uL (1.4-4.0); Lymphocytes % 32.1 % (21.3-54.2); Mean Corpuscular HGB Conc 32.3 GM/DL (32-36); Mean Corpuscular Volume 88.3 FL (87-102); Monocytes % 10.8 % (1.7-12.7); Neutrophils % 54.1 % (38.7-73.9); Platelet Count 293 T/CUMM (130-400); Red Blood Count 3.51 MC/CUMM (3.8-5.5); Red Cell Distribution Width 14.5 % (9.3-17.3); White Blood Count 7.1 T/CUMM (4-12)
[2019-08-09] MEDS ORDERED: DIAZEPAM 5 MG TABLET PO ONE (06:00)
[2019-08-09] MEDS ORDERED: RANITIDINE 150 MG TABLET PO ONE (06:00)
[2019-08-09] MEDS ORDERED: SODIUM CHLORIDE 0.9% 1,000 ML IV SCH (06:00)
[2019-08-09] MEDS ORDERED: CEFUROXIME INJ 1,500 MG in SYRINGE 1 EACH IV ONE (06:00)
[2019-08-09 06:28] LABS: Calcium 8.9 MG/DL (8.5-10.1)
[2019-08-09 06:35] LABS: % Iron Saturation 7.7 % (18-50); Ferritin 64.1 ng/ml (8-252)
[2019-08-09 06:37] LABS: Free T4 (Free Thyroxine) 1.13 NG/DL (0.76-1.46); Thyroid Stimulating Hormone 12.6 uIU/ml (0.358-3.74)
[2019-08-09 06:38] LABS: Folate 6.4 NG/ML (5.4-24.0); Vitamin B12 700 PG/ML (211-911)
[2019-08-09] MEDS: INSULIN REGULAR 100 UNIT/ML SUBCUT SCH ×2 (07:30→11:30)
[2019-08-09 07:40] LABS: Sedimentation Rate-Westergren 93 MM/HR (0-30)
[2019-08-09 08:12] LABS: ABG Base Excess 2.2 MMOL/L (-2.5-2.5); ABG HCO3 26.4 MMOL/L (20-26); ABG Oxygen Saturation 99.8 % (95-100); ABG PCO2 47.9 MM HG (35-48); ABG PH 7.374 (7.35-7.45); ABG TCO2 25.6 MMOL/L (23-27); Glucose Heart Surgery 100 MG/DL (74-106); Hematocrit Heart Surgery 30.2 PERCENT (37-47); Hemoglobin Heart Surgery 9.7 G/DL (12.0-16.0); Ionized Calcium Arterial 1.16 MMOL/L (1.21-1.46); PCO2 Patient Temp Arterial 47.9 MMHG; PH Patient Temp Arterial 7.374; Patient Temperature 37 CELCIUS; Potassium Heart/CVR 4.5 MMOL/L (3.5-5.1); Sodium Heart/CVR 134 MMOL/L (135-145)
[2019-08-09] MEDS: INSULIN ASPART PROTAMINE/ASPART 70/30 100 UNIT/ML SUBCUT SCH (09:00)
[2019-08-09] MEDS: POLYETHYLENE GLYCOL POWDER 17 GM PACK PO SCH (09:00)
[2019-08-09] MEDS: CHLORHEXIDINE 4% SOLN 118 ML BOTTLE TOP SCH (09:00)
[2019-08-09] MEDS: MORPHINE ER 15 MG TABLET PO SCH (09:00)
[2019-08-09] MEDS: ROSUVASTATIN 20 MG TABLET PO SCH (09:00)
[2019-08-09] MEDS: Liraglutide [Victoza 3-Pak] 1.8 MG SUBCUT SCH (09:00)
[2019-08-09] MEDS: CHOLECALCIFEROL 1,000 UNIT TABLET PO SCH (09:00)
[2019-08-09] MEDS: PANTOPRAZOLE 40 MG TABLET PO SCH (09:00)
[2019-08-09] MEDS: amLODIPine 2.5 MG TABLET PO SCH (09:00)
[2019-08-09] MEDS: ISOSORBIDE MONONITRATE 30 MG TABLET PO SCH (09:00)
[2019-08-09] MEDS: CYCLOBENZAPRINE 10 MG TABLET PO SCH (09:00)
[2019-08-09] MEDS: DOCUSATE SODIUM 100 MG CAPSULE PO SCH (09:00)
[2019-08-09] MEDS: CHLORHEXIDINE 0.12% ORAL RINSE 60 ML BOTTLE SWISH/SPIT SCH ×2 (09:00→21:03)
[2019-08-09] MEDS: DULoxetine 30 MG CAPSULE PO SCH (09:00)
[2019-08-09] MEDS: OMEGA 3 ACID ETHYL ESTERS 1 GM CAPSULE PO SCH (09:00)
[2019-08-09] MEDS: carvediloL 3.125 MG TABLET PO SCH (09:00)
[2019-08-09] MEDS: ASPIRIN EC 81 MG TABLET PO SCH (09:00)
[2019-08-09] MEDS: FLUTICASONE/SALMETEROL 250-50 DISKUS 14 DOSE INH SCH (09:00)
[2019-08-09] MEDS: MAGNESIUM CHLORIDE 64 MG TABLET PO SCH (09:00)
[2019-08-09 09:05] LABS: Apearance,Urine CLOUDY (Clear); Bacteria,Urine Occasional /HPF (Few); Bilirubin,Urine Negative (Negative); Blood, Urine Small mg/dL (Negative); Glucose,Urine (UA) Negative (Negative); Ketones,Urine Negative (Negative); Nitrite,Urine Negative (Negative); Protein,Urine Negative; RBC,Urine 2 /HPF (0-4); Squamous Epithelial Cell,Urine Occasional /HPF (0-10); Urine Color Yellow (Yellow); Urine Urobilinogen < 2.0 EU/DL (0.2-1.0); WBC,Urine 67 /HPF (0-6)
[2019-08-09] MEDS ORDERED: NITROPRUSSIDE 50 MG/2 ML VIAL ONE (09:41)
[2019-08-09] MEDS ORDERED: POTASSIUM CHLORIDE RIDER 100 ML IV ONE (09:42)
[2019-08-09 10:16] LABS: Hemoglobin Heart Surgery 6.8 G/DL (12.0-16.0); PH Patient Temp Venous 7.497; PO2 Patient Temp Venous 34.6 MM HG; Potassium Heart/CVR 4.2 MMOL/L (3.5-5.1); VBG Oxygen Saturation 75.5 %; VBG PCO2 38.2 MMHG (41-51); VBG PH 7.467; VBG PO2 39.9 MMHG (17-40)
[2019-08-09] MEDS ORDERED: PHENYLEPHRINE DRIP 20 MG/250 ML PREMIX IV ONE (10:16)
[2019-08-09] MEDS ORDERED: HEPARIN/NACL 0.9% 2 UNITS/ML 500 ML IV ONE (10:17)
[2019-08-09] MEDS ORDERED: ETOMIDATE 40 MG/20 ML VIAL IV ONE (10:17)
[2019-08-09] MEDS ORDERED: NITROGLYCERIN DRIP 50 MG/250 ML BOTTLE IV ONE (10:17)
[2019-08-09] MEDS ORDERED: AMINOCAPROIC ACID 5,000 MG/20 ML VIAL ONE (10:17)
[2019-08-09 10:35] LABS: Hematocrit Heart Surgery 22.2 PERCENT (37-47); Hemoglobin Heart Surgery 7.1 G/DL (12.0-16.0); PCO2 Patient Temp Venous 32.8 MM HG; PH Patient Temp Venous 7.526; PO2 Patient Temp Venous 30.8 MM HG; Potassium Heart/CVR 4.3 MMOL/L (3.5-5.1); VBG Base Excess 4.5 MEQ/L (0-4); VBG HCO3 28.3 MEQ/L (24-28); VBG Oxygen Saturation 79.6 %; VBG PCO2 37.9 MMHG (41-51); VBG PH 7.481
[2019-08-09 11:07] LABS: Hematocrit Heart Surgery 25.1 PERCENT (37-47); Hemoglobin Heart Surgery 8.1 G/DL (12.0-16.0); PCO2 Patient Temp Venous 36.1 MM HG; PH Patient Temp Venous 7.479; PO2 Patient Temp Venous 31.3 MM HG; Potassium Heart/CVR 4.6 MMOL/L (3.5-5.1); VBG Base Excess 3.3 MEQ/L (0-4); VBG HCO3 27.1 MEQ/L (24-28); VBG Oxygen Saturation 75.8 %; VBG PCO2 37.9 MMHG (41-51); VBG PH 7.464; VBG PO2 33.6 MMHG (17-40)
[2019-08-09] MEDS ORDERED: MANNITOL 100 GM/500 ML BAG IV ONE (11:40)
[2019-08-09] MEDS ORDERED: PROTAMINE SULFATE 250 MG/25 ML VIAL IV ONE (11:41)
[2019-08-09] MEDS ORDERED: methylPREDNISolone SOD SUC 1,000 MG/8 ML VIAL ONE (11:41)
[2019-08-09] MEDS ORDERED: LIDOCAINE 2% 5 ML VIAL ONE ×2 (11:41→13:55)
[2019-08-09] MEDS ORDERED: DEXTROSE 5% KCL 20 MEQ 20 MEQ/1,000 ML BAG IV ONE (11:41)
[2019-08-09] MEDS ORDERED: SODIUM BICARBONATE 50 MEQ/50 ML VIAL IV ONE (11:41)
[2019-08-09] MEDS ORDERED: HEPARIN 10,000 UNIT/10 ML VIAL ONE (11:41)
[2019-08-09] MEDS ORDERED: MAGNESIUM SULFATE 5 GM/10 ML VIAL IV ONE (11:41)
[2019-08-09] MEDS ORDERED: ALBUMIN 25% 25 GM/100 ML VIAL IV ONE (11:41)
[2019-08-09] MEDS ORDERED: PROTAMINE SULFATE 50 MG/5 ML VIAL IV ONE ×3 (11:42→12:58)
[2019-08-09] MEDS ORDERED: FUROSEMIDE 20 MG/2 ML VIAL ONE (11:42)
[2019-08-09 11:57] LABS: ABG HCO3 26.3 MMOL/L (20-26); ABG Oxygen Saturation 99.4 % (95-100); ABG PCO2 37.1 MM HG (35-48); ABG PH 7.453 (7.35-7.45); Glucose Heart Surgery 183 MG/DL (74-106); Hematocrit Heart Surgery 26.1 PERCENT (37-47); Hemoglobin Heart Surgery 8.4 G/DL (12.0-16.0); PCO2 Patient Temp Arterial 37.1 MMHG; PH Patient Temp Arterial 7.453; Patient Temperature 37 CELCIUS; Potassium Heart/CVR 3.9 MMOL/L (3.5-5.1); Sodium Heart/CVR 133 MMOL/L (135-145)
[2019-08-09] MEDS: SODIUM CHLORIDE 0.45% 1,000 ML IV SCH ×2 (12:50)
[2019-08-09] MEDS: NITROPRUSSIDE 100 MG in DEXTROSE 5% 250 ML IV PRN ×2 (13:00→20:39)
[2019-08-09] MEDS ORDERED: ALBUTEROL/IPRATROPIUM 3 ML NEB RESP TX ONE (13:10)
[2019-08-09] MEDS ORDERED: INSULIN REGULAR 100 UNIT/ML IV PRN (13:25)
[2019-08-09] MEDS ORDERED: ALBUMIN 5% 12.5 GM in PREMIX 1 EACH IV PRN (13:25)
[2019-08-09] MEDS ORDERED: LACTATED RINGERS 250 ML IV PRN (13:25)
[2019-08-09] MEDS ORDERED: ACETAMINOPHEN 650 MG SUPP RECTAL PRN (13:25)
[2019-08-09] MEDS ORDERED: INSULIN REGULAR 100 UNIT/ML IV ONE (13:25)
[2019-08-09] MEDS ORDERED: VECURONIUM 10 MG VIAL IV PRN ×2 (13:25)
[2019-08-09] MEDS ORDERED: PHENYLEPHRINE DRIP 40 MG/250 ML PREMIX IV PRN (13:25)
[2019-08-09] MEDS ORDERED: MAGNESIUM SULF RIDER 4 GM in PREMIX 1 EACH IV PRN (13:25)
[2019-08-09] MEDS ORDERED: MIDAZOLAM 2 MG/2 ML VIAL IV PRN (13:25)
[2019-08-09] MEDS ORDERED: POTASSIUM CHLORIDE RIDER 10 MEQ in PREMIX 1 EACH IV PRN (13:25)
[2019-08-09] MEDS ORDERED: MAGNESIUM SULF RIDER 2 GM in PREMIX 1 EACH IV PRN (13:25)
[2019-08-09] MEDS ORDERED: CALCIUM CHLORIDE 1,000 MG/10 ML SYRINGE IV PRN (13:25)
[2019-08-09] MEDS ORDERED: ONDANSETRON 4 MG/2 ML VIAL IV PRN (13:25)
[2019-08-09] MEDS ORDERED: DEXTROSE 10% 250 ML BAG IV PRN ×2 (13:25)
[2019-08-09 13:49] LABS: ABG Base Excess 1.8 MMOL/L (-2.5-2.5); ABG HCO3 25.9 MMOL/L (20-26); ABG Oxygen Saturation 93.5 % (95-100); ABG PCO2 42.9 MM HG (35-48); ABG PH 7.405 (7.35-7.45); ABG PO2 65.7 MM HG (80-95); ABG TCO2 22.9 MMOL/L (23-27); Glucose Heart Surgery 217 MG/DL (74-106); Hematocrit Heart Surgery 46.2 PERCENT (37-47); Hemoglobin Heart Surgery 15.1 G/DL (12.0-16.0); Potassium Heart/CVR 3.7 MMOL/L (3.5-5.1)
[2019-08-09 13:50] LABS: Basophils % 0.2 % (0.0-0.8); Eosinophils # 0.1 10*3/uL (0.0-0.87); Eosinophils % 0.5 % (0.00-10.9); Hematocrit 27.7 VOL% (35.7-47.0); Hemoglobin 9.1 GM/DL (12.0-16.0); Immature Granulocytes % 0.6 %; Immature Granulocytes Absolute 0.06 #; Lymphocytes # 0.8 10*3/uL (1.4-4.0); Lymphocytes % 8.4 % (21.3-54.2); Mean Corpuscular HGB Conc 32.9 GM/DL (32-36); Mean Corpuscular Volume 87.9 FL (87-102); Mean Platelet Volume 10.5 FL (9.6-12.0); Monocytes % 5.7 % (1.7-12.7); Neutrophils % 84.6 % (38.7-73.9); Platelet Count 211 T/CUMM (130-400); Red Blood Count 3.15 MC/CUMM (3.8-5.5); Red Cell Distribution Width 14.5 % (9.3-17.3); White Blood Count 9.9 T/CUMM (4-12)
[2019-08-09] MEDS ORDERED: CALCIUM CHLORIDE 1,000 MG/10 ML VIAL IV ONE (13:55)
[2019-08-09] MEDS ORDERED: SEVOFLURANE 1 UNIT/15 MINUTE INH ONE (13:55)
[2019-08-09] MEDS ORDERED: MINERAL OIL/PETROLATUM OPH OINT 3.5 GM TUBE ONE (13:55)
[2019-08-09] MEDS ORDERED: SUCCINYLCHOLINE 200 MG/10 ML VIAL ONE (13:56)
[2019-08-09] MEDS ORDERED: SODIUM CHLORIDE 0.9% 1,000 ML IV ONE (13:56)
[2019-08-09] MEDS ORDERED: SODIUM CHLORIDE 0.9% 200 ML IV ONE (13:56)
[2019-08-09] MEDS: INSULIN REGULAR DRIP 100 ML IV SCH ×2 (13:56→21:00)
[2019-08-09] MEDS ORDERED: VECURONIUM 10 MG VIAL IV ONE (13:56)
[2019-08-09] MEDS ORDERED: SODIUM CHLORIDE 0.9% 250 ML IV ONE (13:56)
[2019-08-09 13:59] LABS: INR 1.1; PT Patient Result 11.4 SECS (9.6-12.2); Partial Thromboplastin Time 25.4 SECS (20.8-36.0)
[2019-08-09] MEDS: POTASSIUM CHLORIDE RIDER 20 MEQ in PREMIX 1 EACH IV PRN ×6 (14:03→21:23)
[2019-08-09] MEDS: MIDAZOLAM 10 MG/2 ML VIAL IV PRN (14:05)
[2019-08-09 14:10] LABS: Lymphocytes 6 % (20-55); Segmented Neutrophils 90 % (50-85); Total Cells Counted 100
[2019-08-09 14:11] LABS: Hypochromasia Slight; Platelet Estimate Normal
[2019-08-09 14:12] LABS: Microcytosis Slight; Ovalocytes Few
[2019-08-09 14:20] LABS: Albumin 3.1 G/DL (3.4-5.0); Bilirubin,Total 1.7 MG/DL (0.2-1.0); Calcium 8.4 MG/DL (8.5-10.1); Osmolality,Calculated 288.7 MOS/KG (273-304); Total Protein 6.7 G/DL (6.4-8.3)
[2019-08-09 14:21] LABS: CKMB % 6.2 %
[2019-08-09 14:23] LABS: Troponin I 8.75 NG/ML (0.00-0.045)
[2019-08-09] MEDS: ALBUTEROL/IPRATROPIUM 3 ML NEB RESP TX SCH ×3 (14:50→22:30)
[2019-08-09] MEDS: methylPREDNISolone SOD SUC 125 MG/2 ML VIAL IV SCH ×2 (15:05→21:03)
[2019-08-09 15:11] LABS: ABG Base Excess 1.8 MMOL/L (-2.5-2.5); ABG Oxygen Saturation 96.9 % (95-100); ABG PCO2 39.2 MM HG (35-48); ABG PH 7.431 (7.35-7.45); ABG PO2 80.3 MM HG (80-95); ABG TCO2 23.8 MMOL/L (23-27); Glucose Heart Surgery 225 MG/DL (74-106); Hematocrit Heart Surgery 29.6 PERCENT (37-47); Hemoglobin Heart Surgery 9.5 G/DL (12.0-16.0); Potassium Heart/CVR 4.2 MMOL/L (3.5-5.1)
[2019-08-09] MEDS: MORPHINE 10 MG/1 ML VIAL IV PRN ×3 (15:40→22:04)
[2019-08-09 17:06] LABS: ABG HCO3 26.2 MMOL/L (20-26); ABG Oxygen Saturation 97.5 % (95-100); ABG PH 7.452 (7.35-7.45); ABG PO2 84.2 MM HG (80-95); ABG TCO2 23.6 MMOL/L (23-27); Glucose Heart Surgery 222 MG/DL (74-106); Hematocrit Heart Surgery 29.1 PERCENT (37-47); Hemoglobin Heart Surgery 9.4 G/DL (12.0-16.0); Potassium Heart/CVR 4.1 MMOL/L (3.5-5.1)
[2019-08-09 18:15] LABS: ABG Base Excess 1.8 MMOL/L (-2.5-2.5); ABG Oxygen Saturation 97.2 % (95-100); ABG PCO2 38.4 MM HG (35-48); ABG PH 7.437 (7.35-7.45); ABG PO2 82.2 MM HG (80-95); ABG TCO2 23.6 MMOL/L (23-27); Glucose Heart Surgery 206 MG/DL (74-106); Hematocrit Heart Surgery 30.4 PERCENT (37-47); Hemoglobin Heart Surgery 9.8 G/DL (12.0-16.0); Potassium Heart/CVR 4.3 MMOL/L (3.5-5.1)
[2019-08-09] MEDS ORDERED: FUROSEMIDE 40 MG/4 ML VIAL IV PRN (18:33)
[2019-08-09] MEDS: CEFUROXIME INJ 1,500 MG in SYRINGE 1 EACH IV SCH (20:27)
[2019-08-09 21:14] LABS: ABG HCO3 26.2 MMOL/L (20-26); ABG Oxygen Saturation 96.9 % (95-100); ABG PCO2 42.4 MM HG (35-48); ABG PO2 83.3 MM HG (80-95); ABG TCO2 24.6 MMOL/L (23-27); Glucose Heart Surgery 151 MG/DL (74-106); Hematocrit Heart Surgery 29.4 PERCENT (37-47); Hemoglobin Heart Surgery 9.5 G/DL (12.0-16.0); Potassium Heart/CVR 4.3 MMOL/L (3.5-5.1)
[2019-08-09 21:42] LABS: CKMB % 2.8 %
[2019-08-09 21:44] LABS: Troponin I 7.25 NG/ML (0.00-0.045)
[2019-08-09 23:44] LABS: ABG Base Excess 1.7 MMOL/L (-2.5-2.5); ABG HCO3 25.9 MMOL/L (20-26); ABG Oxygen Saturation 94.4 % (95-100); ABG PCO2 49.2 MM HG (35-48); ABG PO2 71.9 MM HG (80-95); ABG TCO2 25.4 MMOL/L (23-27); Glucose Heart Surgery 109 MG/DL (74-106); Hematocrit Heart Surgery 30.5 PERCENT (37-47); Hemoglobin Heart Surgery 9.8 G/DL (12.0-16.0); Potassium Heart/CVR 4.6 MMOL/L (3.5-5.1)
[2019-08-10 01:08] LABS: ABG Base Excess 1.9 MMOL/L (-2.5-2.5); ABG Oxygen Saturation 93.1 % (95-100); ABG PCO2 47.7 MM HG (35-48); ABG PH 7.372 (7.35-7.45); ABG PO2 66.9 MM HG (80-95); ABG TCO2 25.3 MMOL/L (23-27); Glucose Heart Surgery 104 MG/DL (74-106); Hematocrit Heart Surgery 30.4 PERCENT (37-47); Hemoglobin Heart Surgery 9.8 G/DL (12.0-16.0); Potassium Heart/CVR 4.8 MMOL/L (3.5-5.1)
[2019-08-10] MEDS: INSULIN REGULAR DRIP 100 ML IV SCH (01:21)
[2019-08-10] MEDS: MORPHINE 10 MG/1 ML VIAL IV PRN (02:55)
[2019-08-10] MEDS ORDERED: PROPOFOL 1,000 MG/100 ML BOTTLE IV ONE (03:00)
[2019-08-10] MEDS: MIDAZOLAM 10 MG/2 ML VIAL IV PRN (03:00)
[2019-08-10] MEDS: ALBUTEROL/IPRATROPIUM 3 ML NEB RESP TX SCH ×6 (03:50→23:57)
[2019-08-10] MEDS ORDERED: ETOMIDATE 40 MG/20 ML VIAL IV ONE (03:54)
[2019-08-10] MEDS ORDERED: ROCURONIUM 100 MG/10 ML VIAL IV ONE (03:54)
[2019-08-10] MEDS: PROPOFOL 1,000 MG/100 ML BOTTLE IV SCH ×2 (04:08→08:30)
[2019-08-10] MEDS: NITROPRUSSIDE 100 MG in DEXTROSE 5% 250 ML IV PRN ×3 (04:09→18:20)
[2019-08-10] MEDS: methylPREDNISolone SOD SUC 125 MG/2 ML VIAL IV SCH ×4 (04:20→20:28)
[2019-08-10 04:36] LABS: ABG Base Excess 1.9 MMOL/L (-2.5-2.5); ABG HCO3 26.1 MMOL/L (20-26); ABG Oxygen Saturation 94.6 % (95-100); ABG PCO2 43.4 MM HG (35-48); ABG PH 7.401 (7.35-7.45); ABG PO2 70.3 MM HG (80-95); ABG TCO2 24.7 MMOL/L (23-27); Glucose Heart Surgery 96 MG/DL (74-106); Hematocrit Heart Surgery 29.4 PERCENT (37-47); Hemoglobin Heart Surgery 9.5 G/DL (12.0-16.0); Potassium Heart/CVR 4.5 MMOL/L (3.5-5.1)
[2019-08-10 04:53] LABS: Basophils % 0.1 % (0.0-0.8); Hematocrit 27.6 VOL% (35.7-47.0); Hemoglobin 9.3 GM/DL (12.0-16.0); Immature Granulocytes % 0.4 %; Immature Granulocytes Absolute 0.06 #; Lymphocytes # 0.7 10*3/uL (1.4-4.0); Lymphocytes % 4.9 % (21.3-54.2); Mean Corpuscular HGB Conc 33.7 GM/DL (32-36); Mean Corpuscular Volume 87.6 FL (87-102); Mean Platelet Volume 11.2 FL (9.6-12.0); Monocytes % 4.4 % (1.7-12.7); Neutrophils % 90.2 % (38.7-73.9); Platelet Count 260 T/CUMM (130-400); Red Blood Count 3.15 MC/CUMM (3.8-5.5); Red Cell Distribution Width 14.9 % (9.3-17.3); White Blood Count 14.4 T/CUMM (4-12)
[2019-08-10 05:11] LABS: Band Neutrophils 1 % (0-10); Hypochromasia 1+; Lymphocytes 5 % (20-55); Platelet Estimate Adequate; Segmented Neutrophils 91 % (50-85); Total Cells Counted 100; Troponin I 5.7 NG/ML (0.00-0.045)
[2019-08-10 05:43] LABS: Albumin 3.1 G/DL (3.4-5.0); Bilirubin,Direct 0.23 MG/DL (0.0-0.20); Bilirubin,Total 0.6 MG/DL (0.2-1.0); Calcium 8.3 MG/DL (8.5-10.1); Osmolality,Calculated 282.5 MOS/KG (273-304); Total Protein 7.2 G/DL (6.4-8.3)
[2019-08-10 07:58] LABS: ABG Base Excess 0.9 MMOL/L (-2.5-2.5); ABG HCO3 25.2 MMOL/L (20-26); ABG Oxygen Saturation 94.8 % (95-100); ABG PCO2 35.4 MM HG (35-48); ABG PO2 69.4 MM HG (80-95); ABG TCO2 22.5 MMOL/L (23-27); Glucose Heart Surgery 214 MG/DL (74-106); Hematocrit Heart Surgery 28.9 PERCENT (37-47); Hemoglobin Heart Surgery 9.3 G/DL (12.0-16.0); Potassium Heart/CVR 4.7 MMOL/L (3.5-5.1)
[2019-08-10] MEDS: INSULIN REGULAR 100 UNIT/ML SUBCUT SCH ×5 (08:08→23:46)
[2019-08-10] MEDS: CEFUROXIME INJ 1,500 MG in SYRINGE 1 EACH IV SCH ×2 (09:15→20:30)
[2019-08-10] MEDS: CHLORHEXIDINE 0.12% ORAL RINSE 60 ML BOTTLE SWISH/SPIT SCH ×2 (09:27→20:31)
[2019-08-10] MEDS: VALSARTAN/HCTZ 160-12.5 MG TABLET PO SCH (10:45)
[2019-08-10] MEDS: LEVOFLOXACIN 500 MG TABLET PO SCH (10:45)
[2019-08-10 11:58] LABS: ABG Base Excess 1.4 MMOL/L (-2.5-2.5); ABG HCO3 24.8 MMOL/L (20-26); ABG Oxygen Saturation 96.6 % (95-100); ABG PCO2 34.5 MM HG (35-48); ABG PH 7.475 (7.35-7.45); ABG PO2 86.5 MM HG (80-95); ABG TCO2 25.9 MMOL/L (23-27); Glucose Heart Surgery 226 MG/DL (74-106); Hemoglobin Heart Surgery 9.5 G/DL (12.0-16.0); Potassium Heart/CVR 4.3 MMOL/L (3.5-5.1)
[2019-08-10] MEDS: SODIUM CHLORIDE 0.45% 1,000 ML IV SCH ×2 (13:00)
[2019-08-10 13:33] LABS: ABG Base Excess 2.2 MMOL/L (-2.5-2.5); ABG HCO3 25.8 MMOL/L (20-26); ABG Oxygen Saturation 88.7 % (95-100); ABG PCO2 36.2 MM HG (35-48); ABG PH 7.471 (7.35-7.45); ABG PO2 55.8 MM HG (80-95); ABG TCO2 26.9 MMOL/L (23-27); Glucose Heart Surgery 239 MG/DL (74-106); Hemoglobin Heart Surgery 9.6 G/DL (12.0-16.0); Potassium Heart/CVR 4.2 MMOL/L (3.5-5.1)
[2019-08-10] MEDS: MORPHINE 4 MG/1 ML VIAL IV PRN ×3 (14:25→23:21)
[2019-08-10] MEDS ORDERED: NITROPRUSSIDE 50 MG/2 ML VIAL ONE ×2 (14:28→17:55)
[2019-08-10] MEDS: carvediloL 3.125 MG TABLET PO SCH ×2 (14:45→21:50)
[2019-08-10 15:55] LABS: ABG Base Excess 2.1 MMOL/L (-2.5-2.5); ABG HCO3 25.8 MMOL/L (20-26); ABG Oxygen Saturation 88.3 % (95-100); ABG PCO2 36.8 MM HG (35-48); ABG PH 7.464 (7.35-7.45); ABG PO2 55.8 MM HG (80-95); Glucose Heart Surgery 253 MG/DL (74-106); Hemoglobin Heart Surgery 9.2 G/DL (12.0-16.0); Potassium Heart/CVR 4.1 MMOL/L (3.5-5.1)
[2019-08-10 16:27] LABS: CKMB % 1.2 %
[2019-08-10] MEDS ORDERED: NITROGLYCERIN DRIP 50 MG/250 ML BOTTLE IV PRN (18:33)
[2019-08-10] MEDS: amLODIPine 2.5 MG TABLET PO SCH (20:24)
[2019-08-10] MEDS: metFORMIN 500 MG TABLET PO SCH (20:24)
[2019-08-11] MEDS: methylPREDNISolone SOD SUC 125 MG/2 ML VIAL IV SCH ×4 (02:17→21:05)
[2019-08-11] MEDS: INSULIN REGULAR 100 UNIT/ML SUBCUT SCH ×5 (04:11→19:39)
[2019-08-11] MEDS: ALBUTEROL/IPRATROPIUM 3 ML NEB RESP TX SCH ×6 (04:34→23:50)
[2019-08-11 05:00] LABS: Basophils % 0.1 % (0.0-0.8); Hematocrit 25.8 VOL% (35.7-47.0); Hemoglobin 8.5 GM/DL (12.0-16.0); Immature Granulocytes Absolute 0.14 #; Lymphocytes # 1.1 10*3/uL (1.4-4.0); Lymphocytes % 7.8 % (21.3-54.2); Mean Corpuscular HGB Conc 32.9 GM/DL (32-36); Mean Corpuscular Volume 88.4 FL (87-102); Mean Platelet Volume 11.1 FL (9.6-12.0); Monocytes % 8.4 % (1.7-12.7); NRBC # 0.04 10*3/uL; Neutrophils % 82.7 % (38.7-73.9); Platelet Count 233 T/CUMM (130-400); Red Blood Count 2.92 MC/CUMM (3.8-5.5); Red Cell Distribution Width 14.8 % (9.3-17.3); White Blood Count 14.1 T/CUMM (4-12)
[2019-08-11 05:22] LABS: Bilirubin,Direct 0.21 MG/DL (0.0-0.20); Bilirubin,Total 0.7 MG/DL (0.2-1.0); Calcium 8.5 MG/DL (8.5-10.1); Osmolality,Calculated 292.7 MOS/KG (273-304); Total Protein 7.3 G/DL (6.4-8.3)
[2019-08-11] MEDS: VALSARTAN/HCTZ 160-12.5 MG TABLET PO SCH (08:11)
[2019-08-11] MEDS: amLODIPine 2.5 MG TABLET PO SCH (08:11)
[2019-08-11] MEDS: CHLORHEXIDINE 0.12% ORAL RINSE 60 ML BOTTLE SWISH/SPIT SCH ×2 (08:11→21:05)
[2019-08-11] MEDS: metFORMIN 500 MG TABLET PO SCH ×2 (08:11→16:37)
[2019-08-11] MEDS: carvediloL 3.125 MG TABLET PO SCH ×2 (08:11→21:05)
[2019-08-11] MEDS: MORPHINE 4 MG/1 ML VIAL IV PRN (08:20)
[2019-08-11] MEDS ORDERED: oxyCODONE/ACETAMINOPHEN 5-325 MG TABLET PO PRN (09:03)
[2019-08-11] MEDS: KETOROLAC 30 MG/1 ML VIAL IV SCH ×3 (09:59→22:20)
[2019-08-11] MEDS: LEVOFLOXACIN 500 MG TABLET PO SCH (09:59)
[2019-08-11] MEDS: SODIUM CHLORIDE 0.45% 1,000 ML IV SCH ×2 (11:56→13:59)
[2019-08-11] MEDS ORDERED: FUROSEMIDE 40 MG/4 ML VIAL IV ONE (13:00)
[2019-08-11] MEDS: glipiZIDE 5 MG TABLET PO SCH (16:37)
[2019-08-11] MEDS: INSULIN NPH/REGULAR 70/30 100 UNIT/ML SUBCUT SCH (16:37)
[2019-08-12] MEDS: INSULIN REGULAR 100 UNIT/ML SUBCUT SCH ×6 (00:13→21:43)
[2019-08-12] MEDS: methylPREDNISolone SOD SUC 125 MG/2 ML VIAL IV SCH (03:25)
[2019-08-12] MEDS: ALBUTEROL/IPRATROPIUM 3 ML NEB RESP TX SCH ×5 (03:28→15:22)
[2019-08-12] MEDS: KETOROLAC 30 MG/1 ML VIAL IV SCH (04:00)
[2019-08-12 04:31] LABS: Basophils % 0.1 % (0.0-0.8); Immature Granulocytes % 1.6 %; Immature Granulocytes Absolute 0.19 #; Lymphocytes # 1.3 10*3/uL (1.4-4.0); Lymphocytes % 10.8 % (21.3-54.2); Mean Corpuscular HGB Conc 33.3 GM/DL (32-36); Mean Corpuscular Volume 88.8 FL (87-102); Mean Platelet Volume 10.4 FL (9.6-12.0); Monocytes % 7.5 % (1.7-12.7); NRBC # 0.05 10*3/uL; Platelet Count 208 T/CUMM (130-400); Red Blood Count 3.04 MC/CUMM (3.8-5.5); Red Cell Distribution Width 14.7 % (9.3-17.3); White Blood Count 12.2 T/CUMM (4-12)
[2019-08-12 04:49] LABS: Albumin 2.7 G/DL (3.4-5.0); Bilirubin,Direct 0.28 MG/DL (0.0-0.20); Bilirubin,Total 0.5 MG/DL (0.2-1.0); Calcium 8.1 MG/DL (8.5-10.1); Total Protein 6.7 G/DL (6.4-8.3)
[2019-08-12] MEDS: INSULIN NPH/REGULAR 70/30 100 UNIT/ML SUBCUT SCH ×2 (09:00→16:58)
[2019-08-12] MEDS: predniSONE 10 MG TABLET PO SCH ×2 (09:00→23:50)
[2019-08-12] MEDS: amLODIPine 2.5 MG TABLET PO SCH (09:00)
[2019-08-12] MEDS: glipiZIDE 5 MG TABLET PO SCH ×2 (09:00→16:56)
[2019-08-12] MEDS: metFORMIN 500 MG TABLET PO SCH ×2 (09:00→16:57)
[2019-08-12] MEDS: CHLORHEXIDINE 0.12% ORAL RINSE 60 ML BOTTLE SWISH/SPIT SCH (09:00)
[2019-08-12] MEDS ORDERED: NICOTINE 21 MG/24 HR PATCH TRANSDERM PRN (09:29)
[2019-08-12] MEDS ORDERED: traZODone 50 MG TABLET PO PRN (09:29)
[2019-08-12] MEDS: ASPIRIN EC 81 MG TABLET PO SCH (10:00)
[2019-08-12] MEDS: VALSARTAN/HCTZ 160-12.5 MG TABLET PO SCH (10:00)
[2019-08-12] MEDS: INSULIN GLARGINE 100 UNIT/ML SUBCUT SCH (10:12)
[2019-08-12] MEDS: LEVOFLOXACIN 500 MG TABLET PO SCH (10:30)
[2019-08-12] MEDS ORDERED: oxyCODONE/ACETAMINOPHEN 5-325 MG TABLET PO PRN (12:54)
[2019-08-12] MEDS ORDERED: MORPHINE 4 MG/1 ML VIAL IV PRN (12:54)
[2019-08-12] MEDS ORDERED: DEXTROSE 10% 250 ML BAG IV PRN (12:54)
[2019-08-12] MEDS ORDERED: ALUMINUM/MAGNES/SIMETH MAX STR 30 ML UDCUP PO PRN (12:54)
[2019-08-12] MEDS ORDERED: ACETAMINOPHEN 325 MG TABLET PO PRN (12:54)
[2019-08-12] MEDS ORDERED: ZALEPLON 5 MG CAPSULE PO PRN (12:54)
[2019-08-12] MEDS ORDERED: MAGNESIUM SULF RIDER 4 GM in PREMIX 1 EACH IV PRN (12:54)
[2019-08-12] MEDS ORDERED: SODIUM CHLOR 0.45% KCL 20 MEQ 20 MEQ/1,000 ML BAG IV SCH (12:54)
[2019-08-12] MEDS ORDERED: DEXTROSE 50% 25 GM/50 ML VIAL IV PRN (12:54)
[2019-08-12] MEDS ORDERED: MAGNESIUM SULF RIDER 2 GM in PREMIX 1 EACH IV PRN (12:54)
[2019-08-12] MEDS ORDERED: GLUCAGON 1 MG VIAL IM PRN ×2 (12:54)
[2019-08-12] MEDS ORDERED: ONDANSETRON 4 MG/2 ML VIAL IV PRN (12:54)
[2019-08-12] MEDS: KETOROLAC 15 MG/1 ML VIAL IV PRN (18:33)
[2019-08-12] MEDS: MAGNESIUM HYDROXIDE SUSP 30 ML UDCUP PO PRN (18:33)
[2019-08-12] MEDS: ROSUVASTATIN 20 MG TABLET PO SCH (23:48)
[2019-08-12] MEDS: CYCLOBENZAPRINE 10 MG TABLET PO SCH (23:49)
[2019-08-12] MEDS: OMEGA 3 ACID ETHYL ESTERS 1 GM CAPSULE PO SCH (23:51)
[2019-08-13] MEDS: INSULIN REGULAR 100 UNIT/ML SUBCUT SCH ×6 (01:48→21:28)
[2019-08-13] MEDS: FLUTICASONE/SALMETEROL 250-50 DISKUS 14 DOSE INH SCH ×3 (04:40→21:26)
[2019-08-13] MEDS: POLYETHYLENE GLYCOL POWDER 17 GM PACK PO SCH ×2 (04:40→09:55)
[2019-08-13] MEDS: CHLORHEXIDINE 0.12% ORAL RINSE 60 ML BOTTLE SWISH/SPIT SCH ×3 (04:40→21:26)
[2019-08-13] MEDS: KETOROLAC 15 MG/1 ML VIAL IV PRN ×2 (04:45→22:00)
[2019-08-13] MEDS ORDERED: FUROSEMIDE 40 MG/4 ML VIAL IV ONE (06:00)
[2019-08-13 06:49] LABS: Basophils % 0.1 % (0.0-0.8); Hematocrit 28.8 VOL% (35.7-47.0); Hemoglobin 9.5 GM/DL (12.0-16.0); Immature Granulocytes % 1.1 %; Immature Granulocytes Absolute 0.16 #; Lymphocytes # 3.3 10*3/uL (1.4-4.0); Lymphocytes % 23.2 % (21.3-54.2); Mean Corpuscular Volume 88.9 FL (87-102); Mean Platelet Volume 10.2 FL (9.6-12.0); Monocytes % 10.5 % (1.7-12.7); NRBC # 0.04 10*3/uL; Neutrophils % 65.1 % (38.7-73.9); Platelet Count 251 T/CUMM (130-400); Red Blood Count 3.24 MC/CUMM (3.8-5.5); Red Cell Distribution Width 14.6 % (9.3-17.3); White Blood Count 14.2 T/CUMM (4-12)
[2019-08-13 07:20] LABS: Alanine Aminotransferase 48 U/L (13-56); Albumin 2.7 G/DL (3.4-5.0); Alkaline Phosphatase 75 U/L (45-117); Aspartate Amino Transferase 40 U/L (0-37); Bilirubin,Indirect 0.2 MG/DL (0.0-1.0); Blood Urea Nitrogen 70 MG/DL (7-18); Calcium 8.4 MG/DL (8.5-10.1); Estimated Glom Filtration Rate 81 ML/MIN; Glucose 73 MG/DL (74-106); Osmolality,Calculated 292.8 MOS/KG (273-304); Total Protein 6.7 G/DL (6.4-8.3)
[2019-08-13 07:21] LABS: Troponin I 0.783 NG/ML (0.00-0.045)
[2019-08-13] MEDS: LEVOTHYROXINE 200 MCG TABLET PO SCH (07:29)
[2019-08-13] MEDS ORDERED: DULoxetine 30 MG CAPSULE PO SCH (09:00)
[2019-08-13] MEDS: OMEGA 3 ACID ETHYL ESTERS 1 GM CAPSULE PO SCH ×2 (09:51→21:27)
[2019-08-13] MEDS: DOCUSATE SODIUM 100 MG CAPSULE PO SCH (09:51)
[2019-08-13] MEDS: FERROUS SULFATE 325 MG TABLET PO SCH (09:52)
[2019-08-13] MEDS: LEVOFLOXACIN 500 MG TABLET PO SCH (09:52)
[2019-08-13] MEDS: PANTOPRAZOLE 40 MG TABLET PO SCH (09:52)
[2019-08-13] MEDS: CYCLOBENZAPRINE 10 MG TABLET PO SCH ×2 (09:52→21:27)
[2019-08-13] MEDS: ASPIRIN EC 81 MG TABLET PO SCH (09:53)
[2019-08-13] MEDS: amLODIPine 2.5 MG TABLET PO SCH (09:53)
[2019-08-13] MEDS: ISOSORBIDE MONONITRATE 30 MG TABLET PO SCH (09:53)
[2019-08-13] MEDS: predniSONE 10 MG TABLET PO SCH ×2 (09:53→21:28)
[2019-08-13] MEDS: POTASSIUM CHLORIDE 20 MEQ TABLET PO PRN ×2 (09:53→11:43)
[2019-08-13] MEDS: metFORMIN 500 MG TABLET PO SCH ×2 (09:53→17:25)
[2019-08-13] MEDS: CHOLECALCIFEROL 1,000 UNIT TABLET PO SCH (09:54)
[2019-08-13] MEDS: glipiZIDE 5 MG TABLET PO SCH ×2 (09:54→17:25)
[2019-08-13] MEDS: VALSARTAN/HCTZ 160-12.5 MG TABLET PO SCH (09:55)
[2019-08-13] MEDS: INSULIN GLARGINE 100 UNIT/ML SUBCUT SCH (10:03)
[2019-08-13] MEDS: INSULIN NPH/REGULAR 70/30 100 UNIT/ML SUBCUT SCH ×2 (10:04→17:22)
[2019-08-13] MEDS: ROSUVASTATIN 20 MG TABLET PO SCH (21:27)
[2019-08-14 04:55] LABS: Basophils % 0.1 % (0.0-0.8); Eosinophils % 0.2 % (0.00-10.9); Hematocrit 30.1 VOL% (35.7-47.0); Hemoglobin 9.8 GM/DL (12.0-16.0); Immature Granulocytes % 0.9 %; Immature Granulocytes Absolute 0.11 #; Lymphocytes # 2.3 10*3/uL (1.4-4.0); Lymphocytes % 19.4 % (21.3-54.2); Mean Corpuscular HGB Conc 32.6 GM/DL (32-36); Mean Corpuscular Volume 88.3 FL (87-102); Mean Platelet Volume 10.5 FL (9.6-12.0); Monocytes % 10.7 % (1.7-12.7); Neutrophils % 68.7 % (38.7-73.9); Platelet Count 263 T/CUMM (130-400); Red Blood Count 3.41 MC/CUMM (3.8-5.5); Red Cell Distribution Width 14.3 % (9.3-17.3); White Blood Count 12.1 T/CUMM (4-12)
[2019-08-14 05:16] LABS: Alanine Aminotransferase 73 U/L (13-56); Albumin 2.7 G/DL (3.4-5.0); Alkaline Phosphatase 91 U/L (45-117); Aspartate Amino Transferase 45 U/L (0-37); Bilirubin,Indirect 0.4 MG/DL (0.0-1.0); Blood Urea Nitrogen 58 MG/DL (7-18); Calcium 8.2 MG/DL (8.5-10.1); Estimated Glom Filtration Rate 80 ML/MIN; Glucose 168 MG/DL (74-106); Osmolality,Calculated 296.5 MOS/KG (273-304); Total Protein 6.5 G/DL (6.4-8.3)
[2019-08-14 05:26] LABS: Troponin I 0.518 NG/ML (0.00-0.045)
[2019-08-14] MEDS: LEVOTHYROXINE 200 MCG TABLET PO SCH (06:09)
[2019-08-14] MEDS ORDERED: LACTULOSE 20 GM/30 ML UDCUP PO PRN (08:46)
[2019-08-14] MEDS: OMEGA 3 ACID ETHYL ESTERS 1 GM CAPSULE PO SCH ×2 (09:08→22:43)
[2019-08-14] MEDS: amLODIPine 2.5 MG TABLET PO SCH (09:09)
[2019-08-14] MEDS: predniSONE 10 MG TABLET PO SCH ×2 (09:09→22:44)
[2019-08-14] MEDS: ASPIRIN EC 81 MG TABLET PO SCH (09:09)
[2019-08-14] MEDS: CHOLECALCIFEROL 1,000 UNIT TABLET PO SCH (09:10)
[2019-08-14] MEDS: glipiZIDE 5 MG TABLET PO SCH ×2 (09:10→16:12)
[2019-08-14] MEDS: FERROUS SULFATE 325 MG TABLET PO SCH (09:10)
[2019-08-14] MEDS: PANTOPRAZOLE 40 MG TABLET PO SCH (09:11)
[2019-08-14] MEDS: CYCLOBENZAPRINE 10 MG TABLET PO SCH ×2 (09:11→22:44)
[2019-08-14] MEDS: metFORMIN 500 MG TABLET PO SCH ×2 (09:11→16:12)
[2019-08-14] MEDS: DOCUSATE SODIUM 100 MG CAPSULE PO SCH (09:11)
[2019-08-14] MEDS: ISOSORBIDE MONONITRATE 30 MG TABLET PO SCH (09:11)
[2019-08-14] MEDS: POLYETHYLENE GLYCOL POWDER 17 GM PACK PO SCH (09:11)
[2019-08-14] MEDS: INSULIN GLARGINE 100 UNIT/ML SUBCUT SCH (09:13)
[2019-08-14] MEDS: INSULIN NPH/REGULAR 70/30 100 UNIT/ML SUBCUT SCH ×2 (09:13→16:12)
[2019-08-14] MEDS: MAGNESIUM HYDROXIDE SUSP 30 ML UDCUP PO PRN (09:14)
[2019-08-14] MEDS: NICOTINE 14 MG/24 HR PATCH TRANSDERM SCH (09:14)
[2019-08-14] MEDS: INSULIN REGULAR 100 UNIT/ML SUBCUT SCH ×4 (09:18→22:44)
[2019-08-14] MEDS: CHLORHEXIDINE 0.12% ORAL RINSE 60 ML BOTTLE SWISH/SPIT SCH ×2 (09:18→22:47)
[2019-08-14] MEDS: FLUTICASONE/SALMETEROL 250-50 DISKUS 14 DOSE INH SCH ×2 (09:18→22:47)
[2019-08-14] MEDS: LEVOFLOXACIN 500 MG TABLET PO SCH (09:59)
[2019-08-14] MEDS: VALSARTAN/HCTZ 160-12.5 MG TABLET PO SCH (09:59)
[2019-08-14] MEDS: ROSUVASTATIN 20 MG TABLET PO SCH (22:44)
[2019-08-14] MEDS: KETOROLAC 15 MG/1 ML VIAL IV PRN (23:59)
[2019-08-15] MEDS: LEVOTHYROXINE 200 MCG TABLET PO SCH (05:52)
[2019-08-15] MEDS: INSULIN REGULAR 100 UNIT/ML SUBCUT SCH ×4 (07:42→21:29)
[2019-08-15] MEDS: INSULIN NPH/REGULAR 70/30 100 UNIT/ML SUBCUT SCH ×2 (07:48→18:31)
[2019-08-15] MEDS: glipiZIDE 5 MG TABLET PO SCH ×2 (10:06→16:49)
[2019-08-15] MEDS: VALSARTAN/HCTZ 160-12.5 MG TABLET PO SCH (10:06)
[2019-08-15] MEDS: ASPIRIN EC 81 MG TABLET PO SCH (10:06)
[2019-08-15] MEDS: FERROUS SULFATE 325 MG TABLET PO SCH (10:07)
[2019-08-15] MEDS: amLODIPine 2.5 MG TABLET PO SCH (10:07)
[2019-08-15] MEDS: CHOLECALCIFEROL 1,000 UNIT TABLET PO SCH (10:07)
[2019-08-15] MEDS: PANTOPRAZOLE 40 MG TABLET PO SCH (10:07)
[2019-08-15] MEDS: LEVOFLOXACIN 500 MG TABLET PO SCH (10:07)
[2019-08-15] MEDS: DOCUSATE SODIUM 100 MG CAPSULE PO SCH (10:07)
[2019-08-15] MEDS: metFORMIN 500 MG TABLET PO SCH ×2 (10:07→16:49)
[2019-08-15] MEDS: OMEGA 3 ACID ETHYL ESTERS 1 GM CAPSULE PO SCH ×2 (10:07→21:28)
[2019-08-15] MEDS: POLYETHYLENE GLYCOL POWDER 17 GM PACK PO SCH (10:08)
[2019-08-15] MEDS: ISOSORBIDE MONONITRATE 30 MG TABLET PO SCH (10:08)
[2019-08-15] MEDS: CHLORHEXIDINE 0.12% ORAL RINSE 60 ML BOTTLE SWISH/SPIT SCH ×2 (10:08→21:32)
[2019-08-15] MEDS: CYCLOBENZAPRINE 10 MG TABLET PO SCH ×2 (10:08→21:29)
[2019-08-15] MEDS: predniSONE 10 MG TABLET PO SCH ×2 (10:08→21:29)
[2019-08-15] MEDS: FLUTICASONE/SALMETEROL 250-50 DISKUS 14 DOSE INH SCH ×2 (10:09→21:33)
[2019-08-15] MEDS: NICOTINE 14 MG/24 HR PATCH TRANSDERM SCH (10:09)
[2019-08-15] MEDS: INSULIN GLARGINE 100 UNIT/ML SUBCUT SCH (10:15)
[2019-08-15] MEDS: HYDROcodone/CHLORPHENIRAMINE ER 5 ML UDCUP PO PRN ×2 (11:35→23:32)
[2019-08-15] MEDS: ASCORBIC ACID 500 MG TABLET PO SCH ×2 (13:15→21:29)
[2019-08-15] MEDS: ROSUVASTATIN 20 MG TABLET PO SCH (21:29)
[2019-08-15] MEDS: KETOROLAC 15 MG/1 ML VIAL IV PRN (23:32)
[2019-08-16] MEDS: LEVOTHYROXINE 200 MCG TABLET PO SCH (06:03)
[2019-08-16 06:56] LABS: Basophils % 0.1 % (0.0-0.8); Eosinophils # 0.3 10*3/uL (0.0-0.87); Eosinophils % 1.5 % (0.00-10.9); Hematocrit 34.6 VOL% (35.7-47.0); Hemoglobin 11.6 GM/DL (12.0-16.0); Immature Granulocytes % 1.6 %; Immature Granulocytes Absolute 0.28 #; Lymphocytes # 3.3 10*3/uL (1.4-4.0); Lymphocytes % 18.9 % (21.3-54.2); Mean Corpuscular HGB Conc 33.5 GM/DL (32-36); Mean Platelet Volume 10.2 FL (9.6-12.0); Monocytes % 7.4 % (1.7-12.7); Neutrophils % 70.5 % (38.7-73.9); Platelet Count 305 T/CUMM (130-400); Red Blood Count 3.93 MC/CUMM (3.8-5.5); Red Cell Distribution Width 14.5 % (9.3-17.3); White Blood Count 17.6 T/CUMM (4-12)
[2019-08-16 07:33] LABS: Alanine Aminotransferase 40 U/L (13-56); Albumin 2.8 G/DL (3.4-5.0); Alkaline Phosphatase 105 U/L (45-117); Aspartate Amino Transferase 15 U/L (0-37); Bilirubin,Indirect 0.3 MG/DL (0.0-1.0); Blood Urea Nitrogen 32 MG/DL (7-18); Calcium 8.8 MG/DL (8.5-10.1); Estimated Glom Filtration Rate 90 ML/MIN; Glucose 130 MG/DL (74-106); Osmolality,Calculated 287.4 MOS/KG (273-304)
[2019-08-16 07:35] LABS: Troponin I 0.215 NG/ML (0.00-0.045)
[2019-08-16] MEDS ORDERED: carvediloL 3.125 MG TABLET PO SCH (09:00)
[2019-08-16] MEDS ORDERED: hydrALAZINE 25 MG TABLET PO SCH (09:00)
[2019-08-16] MEDS: POLYETHYLENE GLYCOL POWDER 17 GM PACK PO SCH (10:07)
[2019-08-16] MEDS: metFORMIN 500 MG TABLET PO SCH (10:07)
[2019-08-16] MEDS: CYCLOBENZAPRINE 10 MG TABLET PO SCH (10:07)
[2019-08-16] MEDS: glipiZIDE 5 MG TABLET PO SCH (10:08)
[2019-08-16] MEDS: OMEGA 3 ACID ETHYL ESTERS 1 GM CAPSULE PO SCH (10:08)
[2019-08-16] MEDS: VALSARTAN/HCTZ 160-12.5 MG TABLET PO SCH (10:08)
[2019-08-16] MEDS: CHOLECALCIFEROL 1,000 UNIT TABLET PO SCH (10:08)
[2019-08-16] MEDS: amLODIPine 2.5 MG TABLET PO SCH (10:09)
[2019-08-16] MEDS: LEVOFLOXACIN 500 MG TABLET PO SCH (10:09)
[2019-08-16] MEDS: DOCUSATE SODIUM 100 MG CAPSULE PO SCH (10:09)
[2019-08-16] MEDS: FERROUS SULFATE 325 MG TABLET PO SCH (10:09)
[2019-08-16] MEDS: PANTOPRAZOLE 40 MG TABLET PO SCH (10:09)
[2019-08-16] MEDS: predniSONE 10 MG TABLET PO SCH (10:10)
[2019-08-16] MEDS: ASCORBIC ACID 500 MG TABLET PO SCH (10:10)
[2019-08-16] MEDS: ISOSORBIDE MONONITRATE 30 MG TABLET PO SCH (10:10)
[2019-08-16] MEDS: ASPIRIN EC 81 MG TABLET PO SCH (10:10)
[2019-08-16] MEDS: CHLORHEXIDINE 0.12% ORAL RINSE 60 ML BOTTLE SWISH/SPIT SCH (10:10)
[2019-08-16] MEDS: INSULIN GLARGINE 100 UNIT/ML SUBCUT SCH (10:11)
[2019-08-16] MEDS: INSULIN NPH/REGULAR 70/30 100 UNIT/ML SUBCUT SCH (10:11)
[2019-08-16] MEDS: INSULIN REGULAR 100 UNIT/ML SUBCUT SCH ×2 (10:12→12:48)
[2019-08-16] MEDS: FLUTICASONE/SALMETEROL 250-50 DISKUS 14 DOSE INH SCH (10:16)
[2019-08-16 12:29] VITALS: BP 127/77
== END 2019-08-16 13:07 | disposition home health service (06) | DRG 233 ==
LOC: N.ED 00:30 → N.EDINP 00:30 → N.2W 06:37 → N.CC 15:32 → N.TELEN 08-07 12:49 → N.CVR 08-09 08:05 → N.TELEN 08-09 08:18 → N.CVR 08-09 12:14 → N.ICU 08-10 16:01 → N.TELES 08-12 12:30
PROVIDERS: ADMIT Hospitalist
PROC: CLCCHCL (ICD-10-PCS; 2019-08-06 14:15)